=== PATIENT | female | born 1930 | race Caucasian/White ===

== ENCOUNTER 2017-04-20 11:06 | Inpatient (IN) | payer OTHER ==
[2017-04-20] MEDS ORDERED: DUONEB 0.5 MG/3 MG NEB SCH (18:24)
[2017-04-20] MEDS ORDERED: NS 1000 ML 1,000 ML ONE (18:25)
[2017-04-20] MEDS: MUCOMYST 20% 200 MG/ML NEB SCH ×2 (19:08→20:52)
[2017-04-20 19:28] LABS: BASOPHILS % (AUTO) 0.4 % (0.2-1.0); EOSINOPHILS % (AUTO) 0.4 % (0.9-2.9); HEMATOCRIT 30.6 % (36.0-47.0); HEMOGLOBIN 10.5 g/dL (12.0-16.0); LYMPHOCYTES # (AUTO) 0.7 X10^3/uL (1.3-2.9); LYMPHOCYTES % (AUTO) 6.4 % (21.0-51.0); MEAN CORPUSCULAR HGB CONC 34.4 g/dL (33.0-35.0); MONOCYTES # (AUTO) 0.6 x10^3/uL (0.3-0.8); NEUTROPHILS # (AUTO) 9.2 x10^3/uL (2.2-4.8); NEUTROPHILS % (AUTO) 86.8 % (42.0-75.0); PLATELET COUNT 226 X10^3/uL (150.0-450.0); RED BLOOD COUNT 3.29 X10^6/uL (3.5-5.4); RED CELL DISTRIBUTION WIDTH 12.7 % (11.6-16.5); WHITE BLOOD COUNT 10.6 X10^3/uL (3.6-10.0)
[2017-04-20 19:41] LABS: ALANINE AMINOTRANSFERASE 123 Units/L (12-78); ALBUMIN 2.8 g/dL (3.4-5.0); ALKALINE PHOSPHATASE 78 Units/L (46-116); ASPARTATE AMINO TRANSFERASE 39 Units/L (15-37); BLOOD UREA NITROGEN 16 mg/dL (7-18); CALCIUM 8.7 mg/dL (8.5-10.1); CARBON DIOXIDE 27.8 mmol/L (21-32); CHLORIDE 107 mmol/L (98-107); COR CA(FOR HYPOALB) 9.7 mg/dL (8.5-10.1); CREATININE 0.85 mg/dL (0.55-1.02); GLUCOSE 107 mg/dL (65-99); SODIUM 142 mmol/L (136-145); TOTAL PROTEIN 6.2 g/dL (6.4-8.2); eGFR BLACK RACES > 60 (>60); eGFR NON BLACK RACES > 60 (>60)
[2017-04-20] MEDS: FLAGYL IV PREMIX 500 MG BAG 500 MG/100 ML BAG IV SCH (19:41)
[2017-04-20] MEDS: ZOSYN VIAL 3.375 GM 3.375 GM in NS 100 ML IV + SPIKE MINIBAG* 100 ML IV SCH (19:41)
[2017-04-20] MEDS: DUONEB 0.5 MG/3 MG NEB SCH (20:52)
--- NOTE | 2017-04-20 22:42 | RAD ---
Portable chest Indication: Dyspnea postoperatively Comparison: None available. Impression: There is a layering left pleural effusion and adjacent opacity, atelectasis versus pneumonia. The ri ght lung is clear apart from chronic interstitial change suggestive of COPD. There is mild cardiomeg michelle without edema. No pneumothorax is seen. Reported By:
[2017-04-20] MEDS ORDERED: CARDIZEM INJ 125 MG VIAL 125 MG in NS 100 ML IV 100 ML IV PRN (23:20)
[2017-04-20] MEDS ORDERED: LANOXIN INJ IVP ONE (23:21)
[2017-04-20] MEDS ORDERED: NS 100 ML IV 100 ML IV ONE (23:24)
[2017-04-20] MEDS ORDERED: CARDIZEM INJ 125 MG VIAL ONE (23:25)
[2017-04-21] MEDS: CIPRO IV 200 MG PREMIX* 200 MG/100 ML BAG IV SCH ×3 (00:11→20:21)
[2017-04-21] MEDS: ZOSYN VIAL 3.375 GM 3.375 GM in NS 100 ML IV + SPIKE MINIBAG* 100 ML IV SCH ×4 (00:31→22:05)
[2017-04-21 00:45] LABS: BILIRUBIN,URINE NEGATIVE (NEGATIVE); BLOOD/HEMOGLOBIN,URINE 3+ (NEGATIVE); GLUCOSE, URINE NEGATIVE (NEGATIVE); KETONES,URINE 4+ (NEGATIVE); LEUKOCYTE ESTERASE ,URINE 1+ (NEGATIVE); NITRITES,URINE NEGATIVE (NEGATIVE); PROTEIN,URINE 3+ (NEGATIVE); UROBILINOGEN,URINE NORMAL (NORMAL)
[2017-04-21 01:00] LABS: AMORPHOUS SEDIMENT,UR 1+ /HPF (NEGATIVE); APPEARANCE,URINE HAZY (CLEAR); BACTERIA,URINE 1+ /HPF (NEGATIVE); COLOR,URINE YELLOW (YELLOW); MUCUS,URINE FEW /HPF (NEGATIVE); SQUAMOUS EPITHELIAL CELL,UR FEW /HPF (NEGATIVE)
[2017-04-21 01:21] VITALS: BMI 22.3
[2017-04-21] MEDS: FLAGYL IV PREMIX 500 MG BAG 500 MG/100 ML BAG IV SCH ×3 (03:16→17:57)
[2017-04-21 07:08] LABS: BASOPHILS # (AUTO) 0.1 X10^3/uL (0.0-0.1); BASOPHILS % (AUTO) 0.5 % (0.2-1.0); EOSINOPHILS % (AUTO) 0.2 % (0.9-2.9); HEMATOCRIT 30.2 % (36.0-47.0); HEMOGLOBIN 10.4 g/dL (12.0-16.0); LYMPHOCYTES # (AUTO) 0.6 X10^3/uL (1.3-2.9); LYMPHOCYTES % (AUTO) 5.8 % (21.0-51.0); MEAN CORPUSCULAR HGB CONC 34.4 g/dL (33.0-35.0); MEAN CORPUSCULAR VOLUME 93.1 fL (80.0-100.0); MEAN PLATELET VOLUME 10.1 fL (7.4-11.0); MONOCYTES # (AUTO) 0.7 x10^3/uL (0.3-0.8); MONOCYTES % (AUTO) 6.6 % (0.0-13.0); NEUTROPHILS # (AUTO) 9.1 x10^3/uL (2.2-4.8); NEUTROPHILS % (AUTO) 86.9 % (42.0-75.0); PLATELET COUNT 235 X10^3/uL (150.0-450.0); RED BLOOD COUNT 3.25 X10^6/uL (3.5-5.4); RED CELL DISTRIBUTION WIDTH 12.8 % (11.6-16.5); WHITE BLOOD COUNT 10.5 X10^3/uL (3.6-10.0)
[2017-04-21 07:38] LABS: ALANINE AMINOTRANSFERASE 97 Units/L (12-78); ALBUMIN 2.5 g/dL (3.4-5.0); ALKALINE PHOSPHATASE 72 Units/L (46-116); BLOOD UREA NITROGEN 16 mg/dL (7-18); CARBON DIOXIDE 22.6 mmol/L (21-32); CHLORIDE 106 mmol/L (98-107); COR CA(FOR HYPOALB) 9.2 mg/dL (8.5-10.1); CREATININE 0.75 mg/dL (0.55-1.02); GLUCOSE 108 mg/dL (65-99); SODIUM 141 mmol/L (136-145); TOTAL PROTEIN 5.7 g/dL (6.4-8.2); eGFR BLACK RACES > 60 (>60); eGFR NON BLACK RACES > 60 (>60)
[2017-04-21 07:46] LABS: ASPARTATE AMINO TRANSFERASE 34 Units/L (15-37)
[2017-04-21] MEDS ORDERED: MIRALAX POWDER (1 DOSE 17GM) PO SCH (09:00)
--- NOTE | 2017-04-21 09:00 | PCM.PROG ---
Progress Note - Progress Note for Day of Date: 04/21/17 - Subjective Subjective: (-) N/V. Admits to fullness and dyspepsia. (+) flatus. (-) BM. ( +) OOB. Pain controlled. - Past Medical Family Social History Allergies: Allergies No Known Drug Allergies Allergy (Verified 04/20/17 18:24) - Review of Systems ROS changes noted: A.fib with RVR treated with cardizem gtt last pm. - Vital Signs and I&O's Vital Signs: Temperature 98.1 F Pulse Rate [Left Brachial] 68 Pulse Rate 144 Respiratory Rate 18 Blood Pressure [Left Arm] 132/61 O2 Sat by Pulse Oximetry 98 Intake and Output: Intake & Output 04/18/17 04/19/17 04/20/17 04/21/17 11:59 11:59 11:59 11:59 Intake Total 1215 Output Total 300 Balance 915 - Physical Exam Oriented: Time, Person Respiratory: Diminished ((L) base) Cardiovascular: Normal Auscultation: Bowel Sounds: Decreased Palpation: Other (Diffuse distention. ) Tenderness: Other (Approp. TTP. Incision C/D/I.) Skin: Bruising (UE R>L) Affect: Normal Speech Pattern: Clear, Appropriate - Laboratory and Diagnostics Result Diagrams: 04/21/17 04:10 04/21/17 04:10 Labs: Laboratory WBC 10.5 X10^3/uL (3.6-10.0) H 04/21/17 04:10 RBC 3.25 X10^6/uL (3.5-5.4) L 04/21/17 04:10 Hgb 10.4 g/dL (12.0-16.0) L 04/21/17 04:10 Hct 30.2 % (36.0-47.0) L 04/21/17 04:10 MCV 93.1 fL (80.0-100.0) 04/21/17 04:10 MCH 32.0 pg (27.0-34.0) 04/21/17 04:10 MCHC 34.4 g/dL (33.0-35.0) 04/21/17 04:10 RDW 12.8 % (11.6-16.5) 04/21/17 04:10 Plt Count 235 X10^3/uL (150.0-450.0) 04/21/17 04:10 MPV 10.1 fL (7.4-11.0) 04/21/17 04:10 Neut % 86.9 % (42.0-75.0) H 04/21/17 04:10 Lymph % 5.8 % (21.0-51.0) L 04/21/17 04:10 [place] % 6.6 % (0.0-13.0) 04/21/17 04:10 Eos % 0.2 % (0.9-2.9) L 04/21/17 04:10 Baso % 0.5 % (0.2-1.0) 04/21/17 04:10 Neut # 9.1 x10^3/uL (2.2-4.8) H 04/21/17 04:10 Lymph # 0.6 X10^3/uL (1.3-2.9) L 04/21/17 04:10 [place] # 0.7 x10^3/uL (0.3-0.8) 04/21/17 04:10 Eos # 0.0 x10^3/uL (0.0-0.2) 04/21/17 04:10 Baso # 0.1 X10^3/uL (0.0-0.1) 04/21/17 04:10 Absolute Nucleated RBC 0.0 /100WBC 04/21/17 04:10 Sodium 141 mmol/L (136-145) 04/21/17 04:10 Corrected Sodium TNP 04/21/17 04:10 Potassium 3.4 mmol/L (3.5-5.1) L 04/21/17 04:10 Chloride 106 mmol/L (98-107) 04/21/17 04:10 Carbon Dioxide 22.6 mmol/L (21-32) 04/21/17 04:10 BUN 16 mg/dL (7-18) 04/21/17 04:10 Creatinine 0.75 mg/dL (0.55-1.02) 04/21/17 04:10 Est GFR (MDRD) Af Amer > 60 (>60) 04/21/17 04:10 Est GFR (MDRD) Non-Af > 60 (>60) 04/21/17 04:10 Glucose 108 mg/dL (65-99) H 04/21/17 04:10 Calcium 8.0 mg/dL (8.5-10.1) L 04/21/17 04:10 Corrected Calcium 9.2 mg/dL (8.5-10.1) 04/21/17 04:10 Total Bilirubin 0.70 mg/dL (0.2-1.0) 04/21/17 04:10 AST 34 Units/L (15-37) 04/21/17 04:10 ALT 97 Units/L (12-78) H 04/21/17 04:10 Alkaline Phosphatase 72 Units/L (46-116) 04/21/17 04:10 Total Protein 5.7 g/dL (6.4-8.2) L 04/21/17 04:10 Albumin 2.5 g/dL (3.4-5.0) L 04/21/17 04:10 Globulin 3.2 g/dL (2.5-4.5) 04/21/17 04:10 Albumin/Globulin Ratio 0.8 Ratio (1.1-2.1) L 04/21/17 04:10 Specimen Type Catherized urine 04/21/17 00:20 Urine Color Yellow (YELLOW) 04/21/17 00:20 Urine Appearance Hazy (CLEAR) 04/21/17 00:20 Urine pH 5.0 (5.0 - 8.0) 04/21/17 00:20 Ur Specific [place] 1.025 (1.000-1.030) 04/21/17 00:20 Urine Protein 3+ (NEGATIVE) 04/21/17 00:20 Urine Glucose (UA) Negative (NEGATIVE) 04/21/17 00:20 Urine Ketones 4+ (NEGATIVE) 04/21/17 00:20 Urine Occult Blood 3+ (NEGATIVE) 04/21/17 00:20 Urine Nitrite Negative (NEGATIVE) 04/21/17 00:20 Urine Bilirubin Negative (NEGATIVE) 04/21/17 00:20 Urine Urobilinogen Normal (NORMAL) 04/21/17 00:20 Ur Leukocyte Esterase 1+ (NEGATIVE) 04/21/17 00:20 Urine RBC 2-6 /HPF (NEGATIVE) 04/21/17 00:20 Urine WBC 5-10 /HPF (NEGATIVE) 04/21/17 00:20 Ur Squamous Epith Cells Few /HPF (NEGATIVE) 04/21/17 00:20 Amorphous Sediment 1+ /HPF (NEGATIVE) 04/21/17 00:20 Urine Bacteria 1+ /HPF (NEGATIVE) 04/21/17 00:20 Urine Mucus Few /HPF (NEGATIVE) 04/21/17 00:20 Ur Culture Indicated? Yes/culture set up 04/21/17 00:20 - Plan (1) Ileus following gastrointestinal surgery Status: Acute Narrative Support Text: 86 yo F POD#3 ex-lap / sigmoidectomy for redundant sigmoid and rectal prolapse. (+) flatus. (-) BM. (+) dyspepsia and abdominal distention. Decreased BS on exam. Plan: Await bowel function. Limit diet to sips CL. Do NOT advance. Concern for N/V and possible aspiration. If does not improve, may require NGT for decompression. UNABLE TO USE SUPPOSITORIES DUE TO LOW STAPLE LINE. Mobilize. Treat UTI. Follow electrolytes.
[2017-04-21] MEDS: NS 1000 ML 1,000 ML IV SCH ×3 (09:32→20:30)
[2017-04-21] MEDS: DUONEB 0.5 MG/3 MG NEB SCH ×4 (09:40→21:21)
[2017-04-21] MEDS: MUCOMYST 20% 200 MG/ML NEB SCH ×4 (09:42→21:21)
[2017-04-21] MEDS: LEVAQUIN PREMIX IV 750 MG 750 MG/150 ML BAG IV SCH (11:00)
[2017-04-21] MEDS ORDERED: XOPENEX 1.25 MG/3 ML NEBULE NEB PRN (13:06)
[2017-04-21] MEDS: CARDIZEM SR 60 MG PO SCH ×3 (15:49→22:04)
[2017-04-21] MEDS ORDERED: ZOFRAN INJ 4 MG VIAL IVP PRN (16:32)
[2017-04-21] MEDS ORDERED: ZOFRAN INJ 4 MG VIAL ONE (16:34)
--- NOTE | 2017-04-21 16:36 | DR.H&P ---
H&P - History & Physical for Day of: H&P Date: 04/20/17 - Chief Complaint Chief Complaint: S/P RECTAL PROLAPSE, LLL ATELECTASIS - Allergies Allergies/Adverse Reactions: Allergies Allergy/AdvReac Type Severity Reaction Status Date / Time No Known Drug Allergies Allergy Verified 04/20/17 18:24 - History of Present Illness History of Present Illness: IS A 86 YEAR OLD PATIENT OF OURS WHO WAS A TRANSFER PER PATIENT AND FAMILY REQUEST FROM [facility]. PATIENT IS STATUS POST SIGMOIDECTOMY DUE TO RECTAL PROLAPSE. SURGERY WAS PERFORMED BY . HE WILL CONTINUE TO FOLLOW PATIENT'S CARE AT THIS FACILITY. A CHEST XRAY ALSO REPORTED LEFT LOWER LOBE ATELECTASIS. SHE WAS NOTED WITH NON PRODUCTIVE COUGH, SHORTNESS OF BREATH, AND WHEEZING ON AUSCULTATION. ON ARRIVAL TO OUR FACILITY, SHE IS NOTED WITH A MIDLINE ABDOMINAL INCISION WITH 12 FARHAT NOTED TO BE INTACT. WOUND IS OPEN TO AIR WITH NO S/SX INFECTION NOTED. PATIENT WAS RECEIVING CIPRO 400MG IV Q12H, ZOSYN 3.375 GM IV Q8H, FLAGYL 500MG IV Q8H, AND LEVAQUIN 750MG IV DAILY AT [facility]. WE WILL CONTINUE THIS TREATMENT. WE WILL ALSO START DUONEB, XOPENEX, AND MUCOMYST NEB TREATMENTS. WE PLAN TO RECHECK LABS IN AM AND CONTINUE TO FOLLOW UP WITH PATIENT. 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 Surgery, Hysterectomy, Ortho Surgery, Tonsillectomy - Family History Family Medical History: Diabetes Mellitus, Cancer, [place] - Social History Does patient currently use any type of tobacco product: No Have you used tobacco products in the last 12 months: No Type of Tobacco Use: Cigarettes Alcohol Use: None Drug Use: None - Medications Home Medications: Albuterol Sulfate [Proair Hfa] 1 puff IH Q6H PRN 04/20/17 [History Confirmed ] Alprazolam [XANAX 0.25 MG *] 0.25 mg PO Q6H PRN 04/20/17 [History Confirmed ] Benzonatate [TESSALON PERLES *] 1 cap PO Q8H PRN 04/20/17 [History Confirmed ] Hydrocodone/Acetaminophen [Hydrocodon-Acetaminophen 5-325] 1 tab PO Q6H PRN [History Confirmed 04/20/17] Losartan/Hydrochlorothiazide [Losartan-Hctz 100-12.5 mg Tab] 1 tab PO DAILY [History Confirmed 04/20/17] Omeprazole 40 mg PO DAILY 04/20/17 [History Confirmed 04/20/17] Prednisone [PREDNISONE TAB 10 MG *] 10 mg PO NEEDED 04/20/17 [History Confirmed 04/20/17] Simvastatin [ZOCOR 20 MG *] 20 mg PO HS 04/20/17 [History Confirmed 04/20/17] Trazodone HCl [TRAZODONE 50 MG (DESYREL) *] 100 mg PO HS 04/20/17 [History Confirmed 04/20/17] - Review of Systems Constitutional: No Symptoms Reported. denies: See HPI, Fever, Chills, Sweats, Weakness, Malaise, Other Eyes: No Symptoms Reported. denies: See HPI, Pain, Vision Change, Conjunctivae Inflammation, Eyelid Inflammation, Redness, Other ENT: No Symptoms Reported. denies: See HPI, Ear Pain, Ear Discharge, Nose Pain , Nose Discharge, Nose Congestion, Mouth Pain, Mouth Swelling, Throat Pain, Throat Swelling, Other Respiratory: Cough, Shortness of Breath, Wheezing Cardiovascular: No Symptoms Reported. denies: Chest Pain, See HPI, Palpitations , Orthopnea, Paroxysmal Noc. Dyspnea, Edema, Light Headedness, Other Gastrointestinal: See HPI, Abdominal Pain. denies: No Symptoms Reported, Nausea , Vomiting, Diarrhea, Constipation, Melena, Hematochezia, Other Musculoskeletal: No Symptoms Reported. denies: See HPI, Shoulder Pain, Arm Pain , Back Pain, Hand Pain, Leg Pain, Foot Pain, Neck Pain, Other Skin: See HPI, Wound. denies: No Symptoms Reported, Rash, Lesions, Jaundice, Bruising, Ecchymosis, Other Neurological: No Symptoms Reported. denies: See HPI, Weakness, Numbness, Incoordination, Change in Speech, Confusion, Seizures, Other - Physical Exam Vital Signs: Temperature 97.8 F Pulse Rate [Left Brachial] 85 Pulse Rate 144 Respiratory Rate 21 Blood Pressure [Left Arm] 156/83 O2 Sat by Pulse Oximetry 97 Oriented: Normal, Time, Person Eyes: Normal Ear: Normal Nose: Normal Throat: Normal Respiratory: Wheezes Throughout. negative: Clear Throughout, Diminished Throughout, Rhonchi Throughout, Rales Throughout, RUL Clear, RML Clear, RLL Clear, MIR Clear, LML Clear, LLL Clear, RUL Diminished, RML Diminished, RLL Diminished, MIR Diminished, LML Diminished, LLL Diminished, RUL Absent, RML Absent, RLL Absent, MIR Absent, LML Absent, LLL Absent, RUL Rhonchi, RML Rhonchi , RLL Rhonchi, MIR Rhonchi, LML Rhonchi, LLL Rhonchi, RUL Insp. Wheeze, RML Insp. Wheeze, RLL Insp. Wheeze, MIR Insp.Wheeze, LML Insp.Wheeze, LLL Insp.Wheeze, RUL Exp. Wheeze, RML Exp. Wheeze, RLL Exp. Wheeze, MIR Exp. Wheeze , LML Exp. Wheeze, LLL Exp. Wheeze, RUL Rales, RML Rales, RLL Rales, MIR Rales, LML Rales, LLL Rales, RUL Rub, RML Rub, RLL Rub, MIR Rub, LML Rub, LLL Rub, RUL Squeak, RML Squeak, RLL Squeak, MIR Squeak, LML Squeak, LLL Squeak Cardiovascular: Normal : Normal Auscultation: Bowel Sounds: Decreased. negative: Normal, Bruit, Absent, Increased, High Pitched, Other Palpation: Normal Tenderness: Diffuse, Moderate, Guarding Skin: Wound (MIDLINE ABDOMINAL SURGICAL WOUND ) Musculoskeletal: Normal. negative: Right, Left, Shoulder, Clavicle, Arm, Elbow , Forearm, Wrist, Hand, Hip, Thigh, Knee, Leg, Ankle, Foot, Back:Thoracic, Back: Lumbar, Back:Midline, Back:Paraspinous, Pelvis, Swelling, Tender, Deformity, Pulse Deficit, Motor Deficit, Sensory Deficit, Instability, Crepitance Psychiatric: Normal. negative: Anxiety, Depression, Agitation, Other Mood Description: Calm. negative: Angry, Apathetic, Depressed, Fearful, Flat, Happy, Hostile, Sad, Suspicious, Withdrawn, Anxious, Appropriate, Labile Affect: Normal Speech Pattern: Clear. negative: Appropriate, Unclear, Inappropriate, Delayed, Slurred, Excessive, Aphasic, Artificially Ventilated - Assessment/Plan (1) History of open sigmoidectomy Status: Acute Plan: CIPRO IV, FLAGYL IV, WOUND CARE, CONTINUE TO MONITOR (2) Rectal prolapse Status: Acute Plan: S/P SIGMOIDECTOMY, CIPRO IV, FLAGYL IV, CONTINUE TO MONITOR (3) Atelectasis of left lung Status: Acute Plan: LEVAQUIN IV, ZOSYN IV, CONTINUE TO MONITOR
[2017-04-21] MEDS: MIRALAX POWDER (1 DOSE 17GM) PO SCH (20:21)
--- NOTE | 2017-04-21 20:36 | RAD ---
EXAM: Abdomen x-ray INDICATION: Tube placement COMPARISION: No priors TECHNIQUE: AP view, single view FINDINGS: Chest x-ray was also included in the exam. Nasogastric tube is coiled in the esophagus. The tip of t he tube is at the thoracic inlet. There is a left pleural effusion volume loss in the left lower lob e. Dilated air-filled loops of small bowel are seen throughout the abdomen. A large amount of stool is seen in the colon on the right. IMPRESSION: Nasogastric tube tip is at the thoracic inlet. The NG tube is coiled in the esophagus. The appearanc e of the small bowel is consistent with a small bowel obstruction or ileus. Reported By:
--- NOTE | 2017-04-21 21:26 | RAD ---
Abdominal KUB Indication: NG Tube placement Comparison: Radiograph of the same day Impression: The esophagogastric tube has been repositioned and advanced in the interval with its tip radiolucent side hole projecting over the proximal stomach. Gaseous distention of the visualized small and larg e bowel appears similar. There is stable small left pleural effusion. No new abnormality. Reported By:
--- NOTE | 2017-04-21 21:59 | RAD ---
Portable chest Indication: Dyspnea Comparison: April 20, 2017 Impression: There is stable cardiomegaly and small left pleural effusion. Adjacent opacity appears similar as we ll. The right lung remains grossly clear apart from chronic interstitial change. No new abnormality. Reported By:
[2017-04-22] MEDS: FLAGYL IV PREMIX 500 MG BAG 500 MG/100 ML BAG IV SCH ×3 (01:41→17:29)
[2017-04-22] MEDS: CARDIZEM SR 60 MG PO SCH ×3 (05:14→20:59)
[2017-04-22] MEDS: ZOSYN VIAL 3.375 GM 3.375 GM in NS 100 ML IV + SPIKE MINIBAG* 100 ML IV SCH ×3 (05:14→20:59)
[2017-04-22 05:33] LABS: BASOPHILS % (AUTO) 0.4 % (0.2-1.0); EOSINOPHILS % (AUTO) 0.4 % (0.9-2.9); HEMATOCRIT 31.1 % (36.0-47.0); HEMOGLOBIN 11.1 g/dL (12.0-16.0); LYMPHOCYTES # (AUTO) 0.7 X10^3/uL (1.3-2.9); LYMPHOCYTES % (AUTO) 5.6 % (21.0-51.0); MEAN CORPUSCULAR HEMOGLOBIN 32.5 pg (27.0-34.0); MEAN CORPUSCULAR HGB CONC 35.6 g/dL (33.0-35.0); MEAN CORPUSCULAR VOLUME 91.3 fL (80.0-100.0); MEAN PLATELET VOLUME 9.1 fL (7.4-11.0); MONOCYTES % (AUTO) 8.7 % (0.0-13.0); NEUTROPHILS % (AUTO) 84.9 % (42.0-75.0); PLATELET COUNT 218 X10^3/uL (150.0-450.0); RED CELL DISTRIBUTION WIDTH 12.7 % (11.6-16.5); WHITE BLOOD COUNT 11.8 X10^3/uL (3.6-10.0)
[2017-04-22 05:40] LABS: ALANINE AMINOTRANSFERASE 72 Units/L (12-78); ALBUMIN 2.5 g/dL (3.4-5.0); ALKALINE PHOSPHATASE 58 Units/L (46-116); ASPARTATE AMINO TRANSFERASE 18 Units/L (15-37); BLOOD UREA NITROGEN 16 mg/dL (7-18); CALCIUM 8.3 mg/dL (8.5-10.1); CARBON DIOXIDE 27.5 mmol/L (21-32); CHLORIDE 107 mmol/L (98-107); COR CA(FOR HYPOALB) 9.5 mg/dL (8.5-10.1); COR NA(FOR HYPERGLY) 144 mmol/L (136-145); CREATININE 0.67 mg/dL (0.55-1.02); GLUCOSE 142 mg/dL (65-99); SODIUM 143 mmol/L (136-145); TOTAL PROTEIN 5.7 g/dL (6.4-8.2); eGFR BLACK RACES > 60 (>60); eGFR NON BLACK RACES > 60 (>60)
[2017-04-22] MEDS ORDERED: K-DUR TAB 20 MEQ PO PRN (05:55)
[2017-04-22] MEDS ORDERED: K-LYTE EFFERVESCENT PO PRN (05:55)
[2017-04-22] MEDS ORDERED: K-RIDER 10 MEQ/NS 100 ML 10 MEQ/100 ML BAG IV PRN (05:55)
[2017-04-22] MEDS: POTASSIUM CHLORIDE LIQ 20 MEQ UDC PO PRN ×2 (06:22→14:48)
[2017-04-22] MEDS: CIPRO IV 200 MG PREMIX* 200 MG/100 ML BAG IV SCH ×2 (08:31→20:32)
[2017-04-22] MEDS: NS 1000 ML 1,000 ML IV SCH ×3 (08:31→21:50)
--- NOTE | 2017-04-22 09:20 | PCM.PROG ---
Progress Note - Progress Note for Day of Date: 04/22/17 - Subjective Subjective: (+) N/V last pm. NGT placed with improvement sx's. (-) flatus / BM. (+) OOB. Pain controlled. - Past Medical Family Social History Allergies: Allergies No Known Drug Allergies Allergy (Verified 04/20/17 18:24) - Vital Signs and I&O's Vital Signs: Temperature 97.7 F Pulse Rate [Left Brachial] 80 Pulse Rate 85 Respiratory Rate 18 Blood Pressure [Left Arm] 168/79 O2 Sat by Pulse Oximetry 96 Intake and Output: Intake & Output 04/19/17 04/20/17 04/21/17 04/22/17 11:59 11:59 11:59 11:59 Intake Total 1215 1308 Output Total 300 2325 Balance 915 -1017 - Physical Exam Oriented: Normal, Time, Person, Place Eyes: Normal Ear: Normal Nose: Normal Throat: Normal Respiratory: Diminished ((L) base - improved ), OTHER Cardiovascular: Normal : Normal Auscultation: Bowel Sounds: Decreased (Imroved). negative: Normal, Bruit, Absent, Increased, High Pitched, Other Palpation: Other (Moderate abd. distention) Tenderness: Diffuse, Moderate Skin: Bruising (UE R>L), Other (Incision C/D/I) Psychiatric: Normal Mood Description: Calm Affect: Normal Speech Pattern: Clear, Appropriate - Laboratory and Diagnostics Result Diagrams: 04/22/17 05:00 04/22/17 05:00 Labs: Laboratory WBC 11.8 X10^3/uL (3.6-10.0) H 04/22/17 05:00 RBC 3.40 X10^6/uL (3.5-5.4) L 04/22/17 05:00 Hgb 11.1 g/dL (12.0-16.0) L 04/22/17 05:00 Hct 31.1 % (36.0-47.0) L 04/22/17 05:00 MCV 91.3 fL (80.0-100.0) 04/22/17 05:00 MCH 32.5 pg (27.0-34.0) 04/22/17 05:00 MCHC 35.6 g/dL (33.0-35.0) H 04/22/17 05:00 RDW 12.7 % (11.6-16.5) 04/22/17 05:00 Plt Count 218 X10^3/uL (150.0-450.0) 04/22/17 05:00 MPV 9.1 fL (7.4-11.0) 04/22/17 05:00 Neut % 84.9 % (42.0-75.0) H 04/22/17 05:00 Lymph % 5.6 % (21.0-51.0) L 04/22/17 05:00 [place] % 8.7 % (0.0-13.0) 04/22/17 05:00 Eos % 0.4 % (0.9-2.9) L 04/22/17 05:00 Baso % 0.4 % (0.2-1.0) 04/22/17 05:00 Neut # 10.0 x10^3/uL (2.2-4.8) H 04/22/17 05:00 Lymph # 0.7 X10^3/uL (1.3-2.9) L 04/22/17 05:00 [place] # 1.0 x10^3/uL (0.3-0.8) H 04/22/17 05:00 Eos # 0.0 x10^3/uL (0.0-0.2) 04/22/17 05:00 Baso # 0.0 X10^3/uL (0.0-0.1) 04/22/17 05:00 Absolute Nucleated RBC 0.0 /100WBC 04/22/17 05:00 Sodium 143 mmol/L (136-145) 04/22/17 05:00 Corrected Sodium 144 mmol/L (136-145) 04/22/17 05:00 Potassium 2.8 mmol/L (3.5-5.1) L* 04/22/17 05:00 Chloride 107 mmol/L (98-107) 04/22/17 05:00 Carbon Dioxide 27.5 mmol/L (21-32) 04/22/17 05:00 BUN 16 mg/dL (7-18) 04/22/17 05:00 Creatinine 0.67 mg/dL (0.55-1.02) 04/22/17 05:00 Est GFR (MDRD) Af Amer > 60 (>60) 04/22/17 05:00 Est GFR (MDRD) Non-Af > 60 (>60) 04/22/17 05:00 Glucose 142 mg/dL (65-99) H 04/22/17 05:00 Calcium 8.3 mg/dL (8.5-10.1) L 04/22/17 05:00 Corrected Calcium 9.5 mg/dL (8.5-10.1) 04/22/17 05:00 Magnesium 1.8 mg/dL (1.7-2.9) 04/22/17 05:00 Total Bilirubin 0.60 mg/dL (0.2-1.0) 04/22/17 05:00 AST 18 Units/L (15-37) 04/22/17 05:00 ALT 72 Units/L (12-78) 04/22/17 05:00 Alkaline Phosphatase 58 Units/L (46-116) 04/22/17 05:00 Total Protein 5.7 g/dL (6.4-8.2) L 04/22/17 05:00 Albumin 2.5 g/dL (3.4-5.0) L 04/22/17 05:00 Globulin 3.2 g/dL (2.5-4.5) 04/22/17 05:00 Albumin/Globulin Ratio 0.8 Ratio (1.1-2.1) L 04/22/17 05:00 Specimen Type Catherized urine 04/21/17 00:20 Urine Color Yellow (YELLOW) 04/21/17 00:20 Urine Appearance Hazy (CLEAR) 04/21/17 00:20 Urine pH 5.0 (5.0 - 8.0) 04/21/17 00:20 Ur Specific [place] 1.025 (1.000-1.030) 04/21/17 00:20 Urine Protein 3+ (NEGATIVE) 04/21/17 00:20 Urine Glucose (UA) Negative (NEGATIVE) 04/21/17 00:20 Urine Ketones 4+ (NEGATIVE) 04/21/17 00:20 Urine Occult Blood 3+ (NEGATIVE) 04/21/17 00:20 Urine Nitrite Negative (NEGATIVE) 04/21/17 00:20 Urine Bilirubin Negative (NEGATIVE) 04/21/17 00:20 Urine Urobilinogen Normal (NORMAL) 04/21/17 00:20 Ur Leukocyte Esterase 1+ (NEGATIVE) 04/21/17 00:20 Urine RBC 2-6 /HPF (NEGATIVE) 04/21/17 00:20 Urine WBC 5-10 /HPF (NEGATIVE) 04/21/17 00:20 Ur Squamous Epith Cells Few /HPF (NEGATIVE) 04/21/17 00:20 Amorphous Sediment 1+ /HPF (NEGATIVE) 04/21/17 00:20 Urine Bacteria 1+ /HPF (NEGATIVE) 04/21/17 00:20 Urine Mucus Few /HPF (NEGATIVE) 04/21/17 00:20 Ur Culture Indicated? Yes/culture set up 04/21/17 00:20 - Plan (1) Ileus following gastrointestinal surgery Status: Acute Plan: Await bowel function. Decreased nausea / dyspepsia with NGT. Improved bowel sounds. UNABLE TO USE SUPPOSITORIES DUE TO LOW STAPLE LINE. Mobilize. Treat UTI. Follow electrolytes. (2) Hypokalemia Status: Acute Plan: Replace. Monitor.
[2017-04-22] MEDS: LEVAQUIN PREMIX IV 750 MG 750 MG/150 ML BAG IV SCH (09:40)
[2017-04-22] MEDS: DUONEB 0.5 MG/3 MG NEB SCH ×4 (10:01→21:03)
[2017-04-22] MEDS: MUCOMYST 20% 200 MG/ML NEB SCH ×4 (10:01→21:04)
--- NOTE | 2017-04-22 10:23 | RAD ---
HISTORY: Shortness of breath Study: Single AP film of the chest obtained 5:08 a.m. Portable Comparison: April 21, 2017 Findings: The trachea is midline . There is no widening or shift of mediastinum. The heart is top normal size. Calcification of the aortic arch is present. blunting of the left costophrenic angle consistent wit h small left pleural effusion which is unchanged since the previous study. Flattening of the right d iaphragm consistent with air trapping.. The lungs are adequately aerated. Osseous structures are wit hin normal limits for the patient's age patchy infiltrate in the left posterior basal segment . IMPRESSION: 1. Heart top normal size. Small left pleural effusion and left posterior basal segment infiltrate un changed since the previous study. Air trapping consistent with COPD. Reported By:
[2017-04-22] MEDS: MIRALAX POWDER (1 DOSE 17GM) PO SCH (20:32)
[2017-04-22] MEDS: RESTORIL CAP 15 MG PO PRN (20:57)
[2017-04-23] MEDS: FLAGYL IV PREMIX 500 MG BAG 500 MG/100 ML BAG IV SCH ×2 (01:46→09:24)
[2017-04-23 05:28] LABS: ALANINE AMINOTRANSFERASE 57 Units/L (12-78); ALBUMIN 2.5 g/dL (3.4-5.0); ALKALINE PHOSPHATASE 56 Units/L (46-116); ASPARTATE AMINO TRANSFERASE 15 Units/L (15-37); BLOOD UREA NITROGEN 18 mg/dL (7-18); CALCIUM 8.3 mg/dL (8.5-10.1); CARBON DIOXIDE 31.5 mmol/L (21-32); CHLORIDE 108 mmol/L (98-107); COR CA(FOR HYPOALB) 9.5 mg/dL (8.5-10.1); COR NA(FOR HYPERGLY) 147 mmol/L (136-145); CREATININE 0.77 mg/dL (0.55-1.02); GLUCOSE 124 mg/dL (65-99); SODIUM 146 mmol/L (136-145); TOTAL PROTEIN 5.6 g/dL (6.4-8.2); eGFR BLACK RACES > 60 (>60); eGFR NON BLACK RACES > 60 (>60)
[2017-04-23 05:46] LABS: BASOPHILS % (AUTO) 0.1 % (0.2-1.0); EOSINOPHILS # (AUTO) 0.1 x10^3/uL (0.0-0.2); EOSINOPHILS % (AUTO) 0.5 % (0.9-2.9); HEMATOCRIT 31.5 % (36.0-47.0); LYMPHOCYTES # (AUTO) 0.8 X10^3/uL (1.3-2.9); LYMPHOCYTES % (AUTO) 6.4 % (21.0-51.0); MEAN CORPUSCULAR HEMOGLOBIN 31.7 pg (27.0-34.0); MEAN CORPUSCULAR HGB CONC 34.8 g/dL (33.0-35.0); MEAN CORPUSCULAR VOLUME 91.1 fL (80.0-100.0); MEAN PLATELET VOLUME 9.1 fL (7.4-11.0); MONOCYTES # (AUTO) 1.1 x10^3/uL (0.3-0.8); MONOCYTES % (AUTO) 8.2 % (0.0-13.0); NEUTROPHILS # (AUTO) 10.8 x10^3/uL (2.2-4.8); NEUTROPHILS % (AUTO) 84.8 % (42.0-75.0); PLATELET COUNT 215 X10^3/uL (150.0-450.0); RED BLOOD COUNT 3.46 X10^6/uL (3.5-5.4); RED CELL DISTRIBUTION WIDTH 12.9 % (11.6-16.5); WHITE BLOOD COUNT 12.8 X10^3/uL (3.6-10.0)
[2017-04-23] MEDS: CARDIZEM SR 60 MG PO SCH ×3 (05:51→21:17)
[2017-04-23] MEDS: ZOSYN VIAL 3.375 GM 3.375 GM in NS 100 ML IV + SPIKE MINIBAG* 100 ML IV SCH (05:51)
[2017-04-23] MEDS: POTASSIUM CHLORIDE LIQ 20 MEQ UDC PO PRN (05:52)
--- NOTE | 2017-04-23 07:02 | RAD ---
HISTORY: Abdominal distension Study: KUB Comparison: April 21, 2017 Findings: There is nasogastric tube present. Its tip is likely within the stomach, however, the side hole is l ikely in the distal esophagus. Advancement should be considered. The abdominal gas pattern is nonspe cific. There is some distended small bowel in the right lower quadrant, however, gas is present dist ally within the colon. This may be due to a postoperative ileus although developing small bowel obst ruction could not be excluded and continued follow up is recommended. No abnormal masses or abnormal calcifications are identified. A left pleural effusion is incidentally noted. IMPRESSION: Dilated small bowel loop in the right abdomen which could be related to postoperative ileus or devel oping small bowel obstruction. Clinical correlation and follow up is recommended Nasogastric tube tip within the stomach however the side hole is likely within the distal esophagus. Advancement should be considered Left pleural effusion Reported By:
--- NOTE | 2017-04-23 07:08 | RAD ---
HISTORY: Shortness of breath Study: Chest AP portable Comparison: April 22, 2017, April 21, 2017 Findings: The heart remains enlarged. No congestive heart failure is noted. The aorta is mildly ectatic. The r ight lung is hyperinflated but clear. The left upper lung field is clear. There is elevation of the left hemidiaphragm with increased density in the retrocardiac area left lower lobe silhouetting out the medial hemidiaphragm. This likely due to volume loss although associated infiltrate and pleural effusion could not be excluded. There is some subsegmental atelectasis in the left costophrenic angl e. The bony thorax is unremarkable. IMPRESSION: No significant change from the prior examination Reported By:
[2017-04-23] MEDS: DUONEB 0.5 MG/3 MG NEB SCH ×4 (09:07→20:46)
[2017-04-23] MEDS: MUCOMYST 20% 200 MG/ML NEB SCH ×2 (09:07→13:49)
--- NOTE | 2017-04-23 10:55 | PCM.PROG ---
Progress Note - Progress Note for Day of Date: 04/23/17 - Subjective Subjective: IS ALERT AND ORIENTED, LYING IN BED ON MORNING ROUNDS. SHE REPORTS FEELING MUCH BETTER COMPARED TO PREVIOUS DAYS. SHE IS NOTED WITH NG TUBE TO LOW INTERMITTENT SUCTION. MODERATE AMOUT OF BILE NOTED IN CANISTER. DIMINISHED LUNG SOUNDS NOTED TO LEFT LUNG ON AUSCULTATION. BOWEL SOUNDS HYPOACTIVE. MIDLINE ABDOMINAL INCISION OPEN TO AIR WITH NO S/SX INFECTION NOTED. FARHAT INTACT. VITALS THIS AM ARE 97.9-86-19-99%-149/82. CBC WNL EXCEPT WBC 12.8, RBC 3.46, HGB 11.0, HCT 31.5. CMP WNL EXCEPT SODIUM 146, POTASSIUM 3.1 , CHLORIDE 108, GLUCOSE 124, CALCIUM 8.3, TOTAL PROTEIN 5.6, ALBUMIN 2.5. KUB REPORTED DILATED SMALL BOWEL LOOP IN THE RIGHT ABDOMEN WHICH COULD BE RELATED TO POSTOPERATIVE ILEUS OR DEVELOPING SMALL BOWEL OBSTRUCTION, NASOGASTRIC TUBE IN STOMACH, HOWEVER, SIDE HOLE LIKELY WITHIN THE DISTAL ESOPHAGUS, AND LEFT PLEURAL EFFUSION. STAFF NOTIFIED TO TO ADVANCE NG TUBE. PATIENT REFUSED ADVANCEMENT OF TUBE. WE WILL CONTINUE WITH CURRENT PLAN OF CARE AND CONSULT WITH REGARDING PATIENT'S STATUS. WE WILL RECHECK LABS AND FOLLOW UP WITH PATIENT IN AM. - Past Medical Family Social History Past Med/Fam/Surg Hx: No changes since H&P Allergies: Allergies No Known Drug Allergies Allergy (Verified 04/20/17 18:24) - Review of Systems ROS: No change since H&P - Vital Signs and I&O's Vital Signs: Temperature 97.9 F Pulse Rate [Left Brachial] 70 Pulse Rate 88 Respiratory Rate 16 Blood Pressure [Left Arm] 159/65 O2 Sat by Pulse Oximetry 100 Intake and Output: Intake & Output 04/20/17 04/21/17 04/22/17 04/23/17 11:59 11:59 11:59 11:59 Intake Total 1215 1308 2182 Output Total 300 2325 3200 Balance 915 [id number] - Physical Exam Oriented: Normal, Time, Person Eyes: Normal Ear: Normal Nose: Normal Throat: Normal Respiratory: Diminished (LEFT LUNG), OTHER Cardiovascular: Normal : Normal Auscultation: Bowel Sounds: Decreased. negative: Normal, Bruit, Absent, Increased, High Pitched, Other Palpation: Normal Tenderness: Diffuse, Moderate, Guarding Skin: Wound (MIDLINE ABDOMINAL SURGICAL WOUND ) Musculoskeletal: Normal. negative: Right, Left, Shoulder, Clavicle, Arm, Elbow , Forearm, Wrist, Hand, Hip, Thigh, Knee, Leg, Ankle, Foot, Back:Thoracic, Back: Lumbar, Back:Midline, Back:Paraspinous, Pelvis, Swelling, Tender, Deformity, Pulse Deficit, Motor Deficit, Sensory Deficit, Instability, Crepitance Psychiatric: Normal. negative: Anxiety, Depression, Agitation, Other Mood Description: Calm. negative: Angry, Apathetic, Depressed, Fearful, Flat, Happy, Hostile, Sad, Suspicious, Withdrawn, Anxious, Appropriate, Labile Affect: Normal Speech Pattern: Clear. negative: Appropriate, Unclear, Inappropriate, Delayed, Slurred, Excessive, Aphasic, Artificially Ventilated - Laboratory and Diagnostics Result Diagrams: 04/23/17 04:20 04/23/17 08:18 Labs: 04/21/17 00:20 Urine,Catheterized Urine Culture - Final Laboratory WBC 12.8 X10^3/uL (3.6-10.0) H 04/23/17 04:20 RBC 3.46 X10^6/uL (3.5-5.4) L 04/23/17 04:20 Hgb 11.0 g/dL (12.0-16.0) L 04/23/17 04:20 Hct 31.5 % (36.0-47.0) L 04/23/17 04:20 MCV 91.1 fL (80.0-100.0) 04/23/17 04:20 MCH 31.7 pg (27.0-34.0) 04/23/17 04:20 MCHC 34.8 g/dL (33.0-35.0) 04/23/17 04:20 RDW 12.9 % (11.6-16.5) 04/23/17 04:20 Plt Count 215 X10^3/uL (150.0-450.0) 04/23/17 04:20 MPV 9.1 fL (7.4-11.0) 04/23/17 04:20 Neut % 84.8 % (42.0-75.0) H 04/23/17 04:20 Lymph % 6.4 % (21.0-51.0) L 04/23/17 04:20 [place] % 8.2 % (0.0-13.0) 04/23/17 04:20 Eos % 0.5 % (0.9-2.9) L 04/23/17 04:20 Baso % 0.1 % (0.2-1.0) L 04/23/17 04:20 Neut # 10.8 x10^3/uL (2.2-4.8) H 04/23/17 04:20 Lymph # 0.8 X10^3/uL (1.3-2.9) L 04/23/17 04:20 [place] # 1.1 x10^3/uL (0.3-0.8) H 04/23/17 04:20 Eos # 0.1 x10^3/uL (0.0-0.2) 04/23/17 04:20 Baso # 0.0 X10^3/uL (0.0-0.1) 04/23/17 04:20 Absolute Nucleated RBC 0.0 /100WBC 04/23/17 04:20 Sodium 146 mmol/L (136-145) H 04/23/17 04:20 Corrected Sodium 147 mmol/L (136-145) H 04/23/17 04:20 Potassium 3.5 mmol/L (3.5-5.1) 04/23/17 08:18 Chloride 108 mmol/L (98-107) H 04/23/17 04:20 Carbon Dioxide 31.5 mmol/L (21-32) 04/23/17 04:20 BUN 18 mg/dL (7-18) 04/23/17 04:20 Creatinine 0.77 mg/dL (0.55-1.02) 04/23/17 04:20 Est GFR (MDRD) Af Amer > 60 (>60) 04/23/17 04:20 Est GFR (MDRD) Non-Af > 60 (>60) 04/23/17 04:20 Glucose 124 mg/dL (65-99) H 04/23/17 04:20 Calcium 8.3 mg/dL (8.5-10.1) L 04/23/17 04:20 Corrected Calcium 9.5 mg/dL (8.5-10.1) 04/23/17 04:20 Magnesium 1.8 mg/dL (1.7-2.9) 04/22/17 05:00 Total Bilirubin 0.50 mg/dL (0.2-1.0) 04/23/17 04:20 AST 15 Units/L (15-37) 04/23/17 04:20 ALT 57 Units/L (12-78) 04/23/17 04:20 Alkaline Phosphatase 56 Units/L (46-116) 04/23/17 04:20 Total Protein 5.6 g/dL (6.4-8.2) L 04/23/17 04:20 Albumin 2.5 g/dL (3.4-5.0) L 04/23/17 04:20 Globulin 3.1 g/dL (2.5-4.5) 04/23/17 04:20 Albumin/Globulin Ratio 0.8 Ratio (1.1-2.1) L 04/23/17 04:20 Specimen Type Catherized urine 04/21/17 00:20 Urine Color Yellow (YELLOW) 04/21/17 00:20 Urine Appearance Hazy (CLEAR) 04/21/17 00:20 Urine pH 5.0 (5.0 - 8.0) 04/21/17 00:20 Ur Specific [place] 1.025 (1.000-1.030) 04/21/17 00:20 Urine Protein 3+ (NEGATIVE) 04/21/17 00:20 Urine Glucose (UA) Negative (NEGATIVE) 04/21/17 00:20 Urine Ketones 4+ (NEGATIVE) 04/21/17 00:20 Urine Occult Blood 3+ (NEGATIVE) 04/21/17 00:20 Urine Nitrite Negative (NEGATIVE) 04/21/17 00:20 Urine Bilirubin Negative (NEGATIVE) 04/21/17 00:20 Urine Urobilinogen Normal (NORMAL) 04/21/17 00:20 Ur Leukocyte Esterase 1+ (NEGATIVE) 04/21/17 00:20 Urine RBC 2-6 /HPF (NEGATIVE) 04/21/17 00:20 Urine WBC 5-10 /HPF (NEGATIVE) 04/21/17 00:20 Ur Squamous Epith Cells Few /HPF (NEGATIVE) 04/21/17 00:20 Amorphous Sediment 1+ /HPF (NEGATIVE) 04/21/17 00:20 Urine Bacteria 1+ /HPF (NEGATIVE) 04/21/17 00:20 Urine Mucus Few /HPF (NEGATIVE) 04/21/17 00:20 Ur Culture Indicated? Yes/culture set up 04/21/17 00:20 - Plan (1) History of open sigmoidectomy Status: Acute Plan: CIPRO IV, FLAGYL IV, WOUND CARE, CONTINUE TO MONITOR (2) Rectal prolapse Status: Acute Plan: S/P SIGMOIDECTOMY, CIPRO IV, FLAGYL IV, CONTINUE TO MONITOR (3) Atelectasis of left lung Status: Acute Plan: LEVAQUIN IV, ZOSYN IV, CONTINUE TO MONITOR (4) Ileus following gastrointestinal surgery Status: Acute Plan: Await bowel function, continue NG tube, continue to monitor labs and kub
[2017-04-23] MEDS: LEVAQUIN PREMIX IV 750 MG 750 MG/150 ML BAG IV SCH (11:26)
[2017-04-23] MEDS: RESTORIL CAP 15 MG PO PRN (21:17)
[2017-04-23] MEDS: MIRALAX POWDER (1 DOSE 17GM) PO SCH (21:17)
[2017-04-24] MEDS: NS 1000 ML 1,000 ML IV SCH ×2 (01:05→18:29)
[2017-04-24 05:13] LABS: BASOPHILS % (AUTO) 0.2 % (0.2-1.0); EOSINOPHILS # (AUTO) 0.1 x10^3/uL (0.0-0.2); EOSINOPHILS % (AUTO) 0.8 % (0.9-2.9); HEMATOCRIT 32.1 % (36.0-47.0); LYMPHOCYTES # (AUTO) 0.8 X10^3/uL (1.3-2.9); MEAN CORPUSCULAR HEMOGLOBIN 31.7 pg (27.0-34.0); MEAN CORPUSCULAR HGB CONC 34.4 g/dL (33.0-35.0); MEAN CORPUSCULAR VOLUME 91.9 fL (80.0-100.0); MONOCYTES # (AUTO) 1.2 x10^3/uL (0.3-0.8); MONOCYTES % (AUTO) 8.7 % (0.0-13.0); NEUTROPHILS # (AUTO) 11.2 x10^3/uL (2.2-4.8); NEUTROPHILS % (AUTO) 84.3 % (42.0-75.0); PLATELET COUNT 206 X10^3/uL (150.0-450.0); RED BLOOD COUNT 3.49 X10^6/uL (3.5-5.4); RED CELL DISTRIBUTION WIDTH 12.8 % (11.6-16.5); WHITE BLOOD COUNT 13.2 X10^3/uL (3.6-10.0)
[2017-04-24 05:32] LABS: ALANINE AMINOTRANSFERASE 46 Units/L (12-78); ALBUMIN 2.5 g/dL (3.4-5.0); ALKALINE PHOSPHATASE 53 Units/L (46-116); ASPARTATE AMINO TRANSFERASE 14 Units/L (15-37); BLOOD UREA NITROGEN 18 mg/dL (7-18); CALCIUM 8.1 mg/dL (8.5-10.1); CARBON DIOXIDE 32.8 mmol/L (21-32); CHLORIDE 108 mmol/L (98-107); COR CA(FOR HYPOALB) 9.3 mg/dL (8.5-10.1); COR NA(FOR HYPERGLY) 146 mmol/L (136-145); CREATININE 0.72 mg/dL (0.55-1.02); GLUCOSE 123 mg/dL (65-99); SODIUM 145 mmol/L (136-145); TOTAL PROTEIN 5.5 g/dL (6.4-8.2); eGFR BLACK RACES > 60 (>60); eGFR NON BLACK RACES > 60 (>60)
[2017-04-24] MEDS: CARDIZEM SR 60 MG PO SCH ×3 (05:57→21:23)
--- NOTE | 2017-04-24 06:50 | RAD ---
HISTORY: Shortness of breath Study: AP portable chest Comparison: April 23, 2017 Findings: The heart remains enlarged. No congestive heart failure is noted. The right lung is hyperinflated bu t clear. The left upper lobe remains clear. Once again noted is abnormal parenchymal density in the retrocardiac area of the left lower lobe silhouetting out the left hemidiaphragm. This is likely due to left lower lobe volume loss although associated infiltrate and pleural effusion could not be exc luded. These findings are stable when compared with the prior examination. The bony thorax is unrema rkable. IMPRESSION: Persistent increased density in the retrocardiac area left lower lobe likely due to left lower lobe volume loss although associated infiltrate or effusion could not be excluded. Follow up until comple te resolution is recommended in order to exclude proximal neoplasm Cardiomegaly without congestive heart failure Reported By:
--- NOTE | 2017-04-24 06:53 | RAD ---
HISTORY: Abdominal pain, abdominal distension Study: KUB Comparison: April 23, 2017 Findings: The nasogastric tube present on the prior examination is not well visualized on this examination. Ga s is identified within the small and large bowel. There is some dilated small bowel. Once again note d which could be related to postoperative ileus or developing small bowel obstruction. Clinical ivanna elation and follow up is recommended in order to determine if further evaluation with CT is indicate d. No abnormal masses or abnormal calcifications are identified. Surgical kenan are present in the mid abdomen the regional skeleton is intact. IMPRESSION: No significant change from the prior examination Reported By:
[2017-04-24] MEDS: DUONEB 0.5 MG/3 MG NEB SCH ×4 (09:40→21:02)
[2017-04-24] MEDS: LEVAQUIN PREMIX IV 750 MG 750 MG/150 ML BAG IV SCH (09:41)
--- NOTE | 2017-04-24 13:26 | PCM.PROG ---
Progress Note - Progress Note for Day of Date: 04/24/17 - Subjective Subjective: IS ALERT AND ORIENTED, LYING IN BED ON MORNING ROUNDS. SHE REPORTS FEELING MUCH BETTER COMPARED TO PREVIOUS DAYS. SHE IS NOTED WITH NG TUBE, CLAMPED AT THIS TIME. LUNG SOUNDS CONTINUE TO BE DIMINISHED ON LEFT SIDE. BOWEL SOUNDS HYPOACTIVE. MIDLINE ABDOMINAL INCISION OPEN TO AIR WITH NO S/SX INFECTION NOTED. FARHAT INTACT. VITALS THIS AM ARE 98.1-85-19-93%-142/59. CBC WNL EXCEPT WBC 13.2, RBC 3.49, HGB 11.0, HCT 32.1. CMP WNL EXCEPT SODIUM 145, POTASSIUM 3.1, CHLORIDE 108, GLUCOSE 123, CALCIUM 8.1, AST 14, TOTAL PROTEIN 5.5 , ALBUMIN 2.5. KUB REPORTED NO SIGNIFICANT CHANGE FROM THE PRIOR EXAMINATION. CHEST XRAY REPORTED PERSISTENT INCREASED DENSITY IN THE RETROCARDIAC AREA LEFT LOWER LOBE LIKELY DUE TO LEFT LOWER LOBE VOLUME LOSS ALTHOUGH ASSOCIATED INFILTRATE OR EFFUSION COUL NOT BE EXCLUDED, ALSO REPORTS CARDIOMEGALY WITHOUT CHF. WE WILL CONTINUE WITH CURRENT PLAN OF CARE. WE WILL RECHECK LABS AND FOLLOW UP WITH PATIENT IN AM. - Past Medical Family Social History Past Med/Fam/Surg Hx: No changes since H&P Allergies: Allergies No Known Drug Allergies Allergy (Verified 04/20/17 18:24) - Review of Systems ROS: No change since H&P - Vital Signs and I&O's Vital Signs: Temperature 97.1 F Pulse Rate [Left Brachial] 84 Pulse Rate 78 Respiratory Rate 21 Blood Pressure [Left Arm] 146/79 O2 Sat by Pulse Oximetry 98 Intake and Output: Intake & Output 04/22/17 04/23/17 04/24/17 04/25/17 11:59 11:59 11:59 11:59 Intake Total 1308 2182 1757 Output Total 2325 3200 900 Balance -1017 -1018 857 - Physical Exam Oriented: Normal, Time, Person Eyes: Normal Ear: Normal Nose: Normal Throat: Normal Respiratory: Diminished (LEFT LUNG), OTHER Cardiovascular: Normal : Normal Auscultation: Bowel Sounds: Decreased. negative: Normal, Bruit, Absent, Increased, High Pitched, Other Palpation: Normal Tenderness: Diffuse, Moderate, Guarding Skin: Wound (MIDLINE ABDOMINAL SURGICAL WOUND ) Musculoskeletal: Normal. negative: Right, Left, Shoulder, Clavicle, Arm, Elbow , Forearm, Wrist, Hand, Hip, Thigh, Knee, Leg, Ankle, Foot, Back:Thoracic, Back: Lumbar, Back:Midline, Back:Paraspinous, Pelvis, Swelling, Tender, Deformity, Pulse Deficit, Motor Deficit, Sensory Deficit, Instability, Crepitance Psychiatric: Normal. negative: Anxiety, Depression, Agitation, Other Mood Description: Calm. negative: Angry, Apathetic, Depressed, Fearful, Flat, Happy, Hostile, Sad, Suspicious, Withdrawn, Anxious, Appropriate, Labile Affect: Normal Speech Pattern: Clear, Appropriate - Laboratory and Diagnostics Result Diagrams: 04/24/17 04:45 04/24/17 12:21 Labs: 04/21/17 00:20 Urine,Catheterized Urine Culture - Final Laboratory WBC 13.2 X10^3/uL (3.6-10.0) H 04/24/17 04:45 RBC 3.49 X10^6/uL (3.5-5.4) L 04/24/17 04:45 Hgb 11.0 g/dL (12.0-16.0) L 04/24/17 04:45 Hct 32.1 % (36.0-47.0) L 04/24/17 04:45 MCV 91.9 fL (80.0-100.0) 04/24/17 04:45 MCH 31.7 pg (27.0-34.0) 04/24/17 04:45 MCHC 34.4 g/dL (33.0-35.0) 04/24/17 04:45 RDW 12.8 % (11.6-16.5) 04/24/17 04:45 Plt Count 206 X10^3/uL (150.0-450.0) 04/24/17 04:45 MPV 9.0 fL (7.4-11.0) 04/24/17 04:45 Neut % 84.3 % (42.0-75.0) H 04/24/17 04:45 Lymph % 6.0 % (21.0-51.0) L 04/24/17 04:45 [place] % 8.7 % (0.0-13.0) 04/24/17 04:45 Eos % 0.8 % (0.9-2.9) L 04/24/17 04:45 Baso % 0.2 % (0.2-1.0) 04/24/17 04:45 Neut # 11.2 x10^3/uL (2.2-4.8) H 04/24/17 04:45 Lymph # 0.8 X10^3/uL (1.3-2.9) L 04/24/17 04:45 [place] # 1.2 x10^3/uL (0.3-0.8) H 04/24/17 04:45 Eos # 0.1 x10^3/uL (0.0-0.2) 04/24/17 04:45 Baso # 0.0 X10^3/uL (0.0-0.1) 04/24/17 04:45 Absolute Nucleated RBC 0.0 /100WBC 04/24/17 04:45 Sodium 145 mmol/L (136-145) 04/24/17 04:55 Corrected Sodium 146 mmol/L (136-145) H 04/24/17 04:55 Potassium 4.2 mmol/L (3.5-5.1) 04/24/17 12:21 Chloride 108 mmol/L (98-107) H 04/24/17 04:55 Carbon Dioxide 32.8 mmol/L (21-32) H 04/24/17 04:55 BUN 18 mg/dL (7-18) 04/24/17 04:55 Creatinine 0.72 mg/dL (0.55-1.02) 04/24/17 04:55 Est GFR (MDRD) Af Amer > 60 (>60) 04/24/17 04:55 Est GFR (MDRD) Non-Af > 60 (>60) 04/24/17 04:55 Glucose 123 mg/dL (65-99) H 04/24/17 04:55 Calcium 8.1 mg/dL (8.5-10.1) L 04/24/17 04:55 Corrected Calcium 9.3 mg/dL (8.5-10.1) 04/24/17 04:55 Magnesium 1.8 mg/dL (1.7-2.9) 04/22/17 05:00 Total Bilirubin 0.40 mg/dL (0.2-1.0) 04/24/17 04:55 AST 14 Units/L (15-37) L 04/24/17 04:55 ALT 46 Units/L (12-78) 04/24/17 04:55 Alkaline Phosphatase 53 Units/L (46-116) 04/24/17 04:55 Total Protein 5.5 g/dL (6.4-8.2) L 04/24/17 04:55 Albumin 2.5 g/dL (3.4-5.0) L 04/24/17 04:55 Globulin 3.0 g/dL (2.5-4.5) 04/24/17 04:55 Albumin/Globulin Ratio 0.8 Ratio (1.1-2.1) L 04/24/17 04:55 Specimen Type Catherized urine 04/21/17 00:20 Urine Color Yellow (YELLOW) 04/21/17 00:20 Urine Appearance Hazy (CLEAR) 04/21/17 00:20 Urine pH 5.0 (5.0 - 8.0) 04/21/17 00:20 Ur Specific [place] 1.025 (1.000-1.030) 04/21/17 00:20 Urine Protein 3+ (NEGATIVE) 04/21/17 00:20 Urine Glucose (UA) Negative (NEGATIVE) 04/21/17 00:20 Urine Ketones 4+ (NEGATIVE) 04/21/17 00:20 Urine Occult Blood 3+ (NEGATIVE) 04/21/17 00:20 Urine Nitrite Negative (NEGATIVE) 04/21/17 00:20 Urine Bilirubin Negative (NEGATIVE) 04/21/17 00:20 Urine Urobilinogen Normal (NORMAL) 04/21/17 00:20 Ur Leukocyte Esterase 1+ (NEGATIVE) 04/21/17 00:20 Urine RBC 2-6 /HPF (NEGATIVE) 04/21/17 00:20 Urine WBC 5-10 /HPF (NEGATIVE) 04/21/17 00:20 Ur Squamous Epith Cells Few /HPF (NEGATIVE) 04/21/17 00:20 Amorphous Sediment 1+ /HPF (NEGATIVE) 04/21/17 00:20 Urine Bacteria 1+ /HPF (NEGATIVE) 04/21/17 00:20 Urine Mucus Few /HPF (NEGATIVE) 04/21/17 00:20 Ur Culture Indicated? Yes/culture set up 04/21/17 00:20 - Plan (1) History of open sigmoidectomy Status: Acute Plan: LEVAQUIN IV, WOUND CARE, CONTINUE TO MONITOR (2) Rectal prolapse Status: Acute Plan: S/P SIGMOIDECTOMY, LEVAQUIN IV, CONTINUE TO MONITOR (3) Atelectasis of left lung Status: Acute Plan: LEVAQUIN IV, CONTINUE TO MONITOR (4) Ileus following gastrointestinal surgery Status: Acute Plan: Await bowel function, continue NG tube, continue to monitor labs and kub
[2017-04-24] MEDS ORDERED: MILK OF MAGNESIA PO ONE (17:24)
[2017-04-24] MEDS: MIRALAX POWDER (1 DOSE 17GM) PO SCH (21:23)
[2017-04-24] MEDS: RESTORIL CAP 15 MG PO PRN (21:23)
[2017-04-25] MEDS: NS 1000 ML 1,000 ML IV SCH (04:42)
[2017-04-25 05:02] LABS: BASOPHILS % (AUTO) 0.2 % (0.2-1.0); EOSINOPHILS # (AUTO) 0.1 x10^3/uL (0.0-0.2); EOSINOPHILS % (AUTO) 0.9 % (0.9-2.9); HEMATOCRIT 31.1 % (36.0-47.0); HEMOGLOBIN 10.9 g/dL (12.0-16.0); LYMPHOCYTES # (AUTO) 0.9 X10^3/uL (1.3-2.9); LYMPHOCYTES % (AUTO) 6.9 % (21.0-51.0); MEAN CORPUSCULAR HEMOGLOBIN 32.1 pg (27.0-34.0); MEAN CORPUSCULAR HGB CONC 34.9 g/dL (33.0-35.0); MEAN CORPUSCULAR VOLUME 92.1 fL (80.0-100.0); MEAN PLATELET VOLUME 9.3 fL (7.4-11.0); MONOCYTES # (AUTO) 1.1 x10^3/uL (0.3-0.8); MONOCYTES % (AUTO) 8.4 % (0.0-13.0); NEUTROPHILS # (AUTO) 10.6 x10^3/uL (2.2-4.8); NEUTROPHILS % (AUTO) 83.6 % (42.0-75.0); PLATELET COUNT 218 X10^3/uL (150.0-450.0); RED BLOOD COUNT 3.38 X10^6/uL (3.5-5.4); RED CELL DISTRIBUTION WIDTH 12.9 % (11.6-16.5); WHITE BLOOD COUNT 12.6 X10^3/uL (3.6-10.0)
[2017-04-25 05:28] LABS: ALANINE AMINOTRANSFERASE 36 Units/L (12-78); ALBUMIN 2.5 g/dL (3.4-5.0); ALKALINE PHOSPHATASE 51 Units/L (46-116); ASPARTATE AMINO TRANSFERASE 13 Units/L (15-37); BLOOD UREA NITROGEN 17 mg/dL (7-18); CALCIUM 8.3 mg/dL (8.5-10.1); CARBON DIOXIDE 32.5 mmol/L (21-32); CHLORIDE 109 mmol/L (98-107); COR CA(FOR HYPOALB) 9.5 mg/dL (8.5-10.1); COR NA(FOR HYPERGLY) 145 mmol/L (136-145); CREATININE 0.72 mg/dL (0.55-1.02); GLUCOSE 116 mg/dL (65-99); SODIUM 145 mmol/L (136-145); TOTAL PROTEIN 5.4 g/dL (6.4-8.2); eGFR BLACK RACES > 60 (>60); eGFR NON BLACK RACES > 60 (>60)
[2017-04-25] MEDS: CARDIZEM SR 60 MG PO SCH ×2 (05:56→14:09)
--- NOTE | 2017-04-25 06:13 | RAD ---
HISTORY: Abdominal distension Study: KUB Comparison: April 24, 2017 Findings: Gas is once again identified in the small and large bowel. There is a dilated small bowel low in the right abdomen unchanged from the prior examination. Findings are consistent either with ileus or sm all bowel obstruction and the appearance is not significantly changed from prior examination. No abn ormal masses or abnormal calcifications are identified. IMPRESSION: No significant change from the prior examination Reported By:
--- NOTE | 2017-04-25 06:22 | RAD ---
HISTORY: Shortness of breath Study: AP portable chest Comparison: April 24, 2017 Findings: The heart is enlarged. No congestive heart failure is noted. The aorta is calcified. The right lung is mildly hyperinflated but clear. The left upper lobe is clear. There is persistent increased densi ty in the retrocardiac area left lower lobe silhouetting out the medial left hemidiaphragm. 's could be due to left lower lobe volume loss is, infiltrate, effusion or a combination. It is unchanged in appearance from the prior examination. The left hemidiaphragm is elevated. The bony thorax is unrem arkable. IMPRESSION: No significant change from the prior examination Reported By:
[2017-04-25] MEDS: LEVAQUIN PREMIX IV 750 MG 750 MG/150 ML BAG IV SCH (08:54)
[2017-04-25] MEDS: DUONEB 0.5 MG/3 MG NEB SCH ×2 (09:33→12:15)
--- NOTE | 2017-04-25 09:34 | PCM.PROG ---
Progress Note - Subjective Subjective: (-) N/V. (+) BM. Tolerating CL. (+) OOB. Pain controlled. - Past Medical Family Social History Past Med/Fam/Surg Hx: No changes since H&P Allergies: Allergies No Known Drug Allergies Allergy (Verified 04/20/17 18:24) - Review of Systems ROS: No change since H&P - Vital Signs and I&O's Vital Signs: Temperature 98.1 F Pulse Rate [Left Brachial] 90 Pulse Rate 90 Respiratory Rate 24 Blood Pressure [Left Arm] 135/57 O2 Sat by Pulse Oximetry 95 Intake and Output: Intake & Output 04/22/17 04/23/17 04/24/17 04/25/17 11:59 11:59 11:59 11:59 Intake Total 1308 2182 1757 1070 Output Total 2325 3200 900 Balance -1017 -1634 687 3733 - Physical Exam Oriented: Normal, Time, Person, Place Eyes: Normal Ear: Normal Nose: Normal Throat: Normal Respiratory: Diminished (LEFT LUNG), OTHER Cardiovascular: Normal : Normal Auscultation: Bowel Sounds: Normal. negative: Bruit, Absent, Increased, High Pitched, Other Palpation: Other (Slight distention. Incision C/D/I. [place] in place.) Tenderness: Normal Skin: Normal Musculoskeletal: Normal. negative: Right, Left, Shoulder, Clavicle, Arm, Elbow , Forearm, Wrist, Hand, Hip, Thigh, Knee, Leg, Ankle, Foot, Back:Thoracic, Back: Lumbar, Back:Midline, Back:Paraspinous, Pelvis, Swelling, Tender, Deformity, Pulse Deficit, Motor Deficit, Sensory Deficit, Instability, Crepitance Psychiatric: Normal. negative: Anxiety, Depression, Agitation, Other Mood Description: Calm. negative: Angry, Apathetic, Depressed, Fearful, Flat, Happy, Hostile, Sad, Suspicious, Withdrawn, Anxious, Appropriate, Labile Affect: Normal Speech Pattern: Clear, Appropriate - Laboratory and Diagnostics Result Diagrams: 04/25/17 03:25 04/25/17 03:25 Labs: 04/21/17 00:20 Urine,Catheterized Urine Culture - Final Laboratory WBC 12.6 X10^3/uL (3.6-10.0) H 04/25/17 03:25 RBC 3.38 X10^6/uL (3.5-5.4) L 04/25/17 03:25 Hgb 10.9 g/dL (12.0-16.0) L 04/25/17 03:25 Hct 31.1 % (36.0-47.0) L 04/25/17 03:25 MCV 92.1 fL (80.0-100.0) 04/25/17 03:25 MCH 32.1 pg (27.0-34.0) 04/25/17 03:25 MCHC 34.9 g/dL (33.0-35.0) 04/25/17 03:25 RDW 12.9 % (11.6-16.5) 04/25/17 03:25 Plt Count 218 X10^3/uL (150.0-450.0) 04/25/17 03:25 MPV 9.3 fL (7.4-11.0) 04/25/17 03:25 Neut % 83.6 % (42.0-75.0) H 04/25/17 03:25 Lymph % 6.9 % (21.0-51.0) L 04/25/17 03:25 [place] % 8.4 % (0.0-13.0) 04/25/17 03:25 Eos % 0.9 % (0.9-2.9) 04/25/17 03:25 Baso % 0.2 % (0.2-1.0) 04/25/17 03:25 Neut # 10.6 x10^3/uL (2.2-4.8) H 04/25/17 03:25 Lymph # 0.9 X10^3/uL (1.3-2.9) L 04/25/17 03:25 [place] # 1.1 x10^3/uL (0.3-0.8) H 04/25/17 03:25 Eos # 0.1 x10^3/uL (0.0-0.2) 04/25/17 03:25 Baso # 0.0 X10^3/uL (0.0-0.1) 04/25/17 03:25 Absolute Nucleated RBC 0.0 /100WBC 04/25/17 03:25 Sodium 145 mmol/L (136-145) 04/25/17 03:25 Corrected Sodium 145 mmol/L (136-145) 04/25/17 03:25 Potassium 3.9 mmol/L (3.5-5.1) 04/25/17 03:25 Chloride 109 mmol/L (98-107) H 04/25/17 03:25 Carbon Dioxide 32.5 mmol/L (21-32) H 04/25/17 03:25 BUN 17 mg/dL (7-18) 04/25/17 03:25 Creatinine 0.72 mg/dL (0.55-1.02) 04/25/17 03:25 Est GFR (MDRD) Af Amer > 60 (>60) 04/25/17 03:25 Est GFR (MDRD) Non-Af > 60 (>60) 04/25/17 03:25 Glucose 116 mg/dL (65-99) H 04/25/17 03:25 Calcium 8.3 mg/dL (8.5-10.1) L 04/25/17 03:25 Corrected Calcium 9.5 mg/dL (8.5-10.1) 04/25/17 03:25 Magnesium 1.8 mg/dL (1.7-2.9) 04/22/17 05:00 Total Bilirubin 0.40 mg/dL (0.2-1.0) 04/25/17 03:25 AST 13 Units/L (15-37) L 04/25/17 03:25 ALT 36 Units/L (12-78) 04/25/17 03:25 Alkaline Phosphatase 51 Units/L (46-116) 04/25/17 03:25 Total Protein 5.4 g/dL (6.4-8.2) L 04/25/17 03:25 Albumin 2.5 g/dL (3.4-5.0) L 04/25/17 03:25 Globulin 2.9 g/dL (2.5-4.5) 04/25/17 03:25 Albumin/Globulin Ratio 0.9 Ratio (1.1-2.1) L 04/25/17 03:25 Specimen Type Catherized urine 04/21/17 00:20 Urine Color Yellow (YELLOW) 04/21/17 00:20 Urine Appearance Hazy (CLEAR) 04/21/17 00:20 Urine pH 5.0 (5.0 - 8.0) 04/21/17 00:20 Ur Specific [place] 1.025 (1.000-1.030) 04/21/17 00:20 Urine Protein 3+ (NEGATIVE) 04/21/17 00:20 Urine Glucose (UA) Negative (NEGATIVE) 04/21/17 00:20 Urine Ketones 4+ (NEGATIVE) 04/21/17 00:20 Urine Occult Blood 3+ (NEGATIVE) 04/21/17 00:20 Urine Nitrite Negative (NEGATIVE) 04/21/17 00:20 Urine Bilirubin Negative (NEGATIVE) 04/21/17 00:20 Urine Urobilinogen Normal (NORMAL) 04/21/17 00:20 Ur Leukocyte Esterase 1+ (NEGATIVE) 04/21/17 00:20 Urine RBC 2-6 /HPF (NEGATIVE) 04/21/17 00:20 Urine WBC 5-10 /HPF (NEGATIVE) 04/21/17 00:20 Ur Squamous Epith Cells Few /HPF (NEGATIVE) 04/21/17 00:20 Amorphous Sediment 1+ /HPF (NEGATIVE) 04/21/17 00:20 Urine Bacteria 1+ /HPF (NEGATIVE) 04/21/17 00:20 Urine Mucus Few /HPF (NEGATIVE) 04/21/17 00:20 Ur Culture Indicated? Yes/culture set up 04/21/17 00:20 - Plan (1) Rectal prolapse Status: Acute Narrative Support Text: Stable post-op. Bowel function returning to normal. (+) BM. (-) f/c. OK discharge from surgery stdpt. Plan: Discharge. Routine post-op care. f/u 1 week for staple removal. Recommend probiotics or yogurt. (2) Atelectasis of left lung Status: Acute Narrative Support Text: Improved on exam. Discussed with patient pulmonary toilet at home. Patient reports meds for nebulizer at home. Plan: Change to levaquin PO on discharge.
[2017-04-25 13:14] VITALS: BP 135/70
== END 2017-04-26 20:15 | disposition home or self-care (01) | DRG 394 ==
LOC: ICU 11:06 → UNDODISIN 04-25 15:40
PROVIDERS: ADMIT Internal Medicine; ATTEND Internal Medicine
PROC: 0D9670Z Drainage of Stomach with Drainage Device, Via Natural or Artificial Opening (ICD-10-PCS; principal; 2017-04-21)
DX: K62.3 Rectal prolapse (principal); J98.11 Atelectasis; R06.02 Shortness of breath; J44.9 Chronic obstructive pulmonary disease, unspecified; E78.2 Mixed hyperlipidemia; M13.89 Other specified arthritis, multiple sites; K21.9 Gastro-esophageal reflux disease without esophagitis; Z98.890 Other specified postprocedural states; I48.91 Unspecified atrial fibrillation; K91.3 Postprocedural intestinal obstruction; E87.6 Hypokalemia; I51.7 Cardiomegaly
CPT/HCPCS: 36415; 71010; 74000; 74176; 80053; 81001; 83735; 84132; 85025; 87086; 93005; 94640; 94760; 96365; 99231; 99284; A4216; A4222; S0030; J0744; J1160; J1956; J2405; J2543; J7506; J7608; J7613; J7620

== ENCOUNTER 2017-04-25 18:24 | Inpatient (IN) | payer OTHER ==
--- NOTE | 2017-04-25 18:30 | DR.GENAD ---
HPI - HPI Comment HPI Comment: POST BOWEL RESECTION. WENT TO BATHROOM AND FELT PROLAPSE INTO HER VAGINAL AREA WITH BLEEDING. SOME ABDOMINAL PAIN PRESENT LOWER ABDOMEN. - Complaint/Symptoms Chief Complaint Doctors Comments: BLADDER PROLAPSE WITH BLEEDING. 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, Hysterectomy, Ortho Surgery, Tonsillectomy - Family History Family Medical History: Diabetes Mellitus, Cancer, [place] ROS - Review of Systems Constitutional: Weakness, Fatigue Eyes: No Symptoms Reported ENTM: No Symptoms Reported Respiratoy: No Symptoms Reported Cardiovascular: No Symptoms Reported Gastrointestinal/Abdominal: Abdominal Pain Neurological: No Symptoms Reported Musculoskeletal: No Symptoms Reported Integumentary: No Symptoms Reported Hematologic/Lymphatic: No Symptoms Reported Endocrine: No Symptoms Reported PE - Vital Signs Vitals: Temperature 98.6 F Pulse Rate 83 Respiratory Rate 18 Blood Pressure [Left Arm] 135/70 Blood Pressure 133/64 O2 Sat by Pulse Oximetry 97 - General Limitations: No Limitations General Appearance: Alert - Head Head Exam: Normal Inspection - Eyes Eye exam: Normal Appearance - ENT ENT Exam: Normal External Ear Exam External Ear Exam: Normal External Inspection TM/Canal Exam: Bilateral Normal Nose Exam: Normal Nose Exam Mouth Exam: Normal Inspection Throat Exam: Normal Inspection - Neck Neck Exam: Trachea Midline - Chest Chest Inspection: Symmetric Chest Wall Rise - Respiratory Respiratory Exam: Normal Lung Sounds Bilat Respiratory Exam: Bilateral Clear to Auscultation - Cardiovascular Cardiovascular Exam: Regular Rate, Normal Rhythm, Normal Heart Sounds - Abdominal Exam Abdominal Exam: Normal Bowel Sounds, Soft, Tenderness Abdominal Tenderness: RLQ, LLQ, Suprapubic, Other (PROLASE VAGINAL AREA.) - Extremities Extremities Exam: Normal Inspection - Back Back Exam: Normal Inspection - Neurologic Neurological Exam: Alert, Oriented X3 - Psychiatric Psychiatric Exam: Normal Affect, Normal Mood - Skin Skin Exam: Normal Color MDM - Additional Information Additional Information Obtained From: Family - Differential Diagnosis Differential Diagnosis: BLADDER PROLASE, ABDOMINAL PAIN Course - Treatment Treatment: SEE ORDERS. - Consultation Consultation Comments: DISCUSS PATIENT WITH DR. BANG. HE WILL ADMIT PATIENT. - Education/Counseling Education/Counseling: Patient, Family Educated On: Diagnosis ROR - Labs Reviewed Laboratory Results Reviewed?: Yes Result Diagrams: 04/25/17 19:07 04/25/17 19:07 Laboratory: WBC 13.0 X10^3/uL (3.6-10.0) H 04/25/17 19:07 RBC 3.56 X10^6/uL (3.5-5.4) 04/25/17 19:07 Hgb 11.1 g/dL (12.0-16.0) L 04/25/17 19:07 Hct 32.7 % (36.0-47.0) L 04/25/17 19:07 MCV 91.7 fL (80.0-100.0) 04/25/17 19:07 MCH 31.3 pg (27.0-34.0) 04/25/17 19:07 MCHC 34.1 g/dL (33.0-35.0) 04/25/17 19:07 RDW 13.2 % (11.6-16.5) 04/25/17 19:07 Plt Count 226 X10^3/uL (150.0-450.0) 04/25/17 19:07 MPV 8.9 fL (7.4-11.0) 04/25/17 19:07 Neut % 83.4 % (42.0-75.0) H 04/25/17 19:07 Lymph % 7.6 % (21.0-51.0) L 04/25/17 19:07 Cochran % 7.3 % (0.0-13.0) 04/25/17 19:07 Eos % 1.0 % (0.9-2.9) 04/25/17 19:07 Baso % 0.7 % (0.2-1.0) 04/25/17 19:07 Neut # 10.8 x10^3/uL (2.2-4.8) H 04/25/17 19:07 Lymph # 1.0 X10^3/uL (1.3-2.9) L 04/25/17 19:07 Cochran # 0.9 x10^3/uL (0.3-0.8) H 04/25/17 19:07 Eos # 0.1 x10^3/uL (0.0-0.2) 04/25/17 19:07 Baso # 0.1 X10^3/uL (0.0-0.1) 04/25/17 19:07 Absolute Nucleated RBC 0.0 /100WBC 04/25/17 19:07 - XRAY XRAY Interpreted by: Radiologist XRAY Findings: REPORT DISCUSS WITH PATIENT. - Diagnosis Discharge Problem: Prolapse of bladder, Post-operative state, Pleural effusion, Pericardial effusion, Vaginal bleeding Abdominal pain Qualifiers: Abdominal location: generalized Qualified Code(s): R10.84 - Generalized abdominal pain - Discharge Plan Disposition: ADMITTED INPATIENT Condition: Stable - Follow ups/Referrals - Instructions
[2017-04-25 19:16] LABS: BASOPHILS # (AUTO) 0.1 X10^3/uL (0.0-0.1); BASOPHILS % (AUTO) 0.7 % (0.2-1.0); EOSINOPHILS # (AUTO) 0.1 x10^3/uL (0.0-0.2); HEMATOCRIT 32.7 % (36.0-47.0); HEMOGLOBIN 11.1 g/dL (12.0-16.0); LYMPHOCYTES % (AUTO) 7.6 % (21.0-51.0); MEAN CORPUSCULAR HEMOGLOBIN 31.3 pg (27.0-34.0); MEAN CORPUSCULAR HGB CONC 34.1 g/dL (33.0-35.0); MEAN CORPUSCULAR VOLUME 91.7 fL (80.0-100.0); MEAN PLATELET VOLUME 8.9 fL (7.4-11.0); MONOCYTES # (AUTO) 0.9 x10^3/uL (0.3-0.8); MONOCYTES % (AUTO) 7.3 % (0.0-13.0); NEUTROPHILS # (AUTO) 10.8 x10^3/uL (2.2-4.8); NEUTROPHILS % (AUTO) 83.4 % (42.0-75.0); PLATELET COUNT 226 X10^3/uL (150.0-450.0); RED BLOOD COUNT 3.56 X10^6/uL (3.5-5.4); RED CELL DISTRIBUTION WIDTH 13.2 % (11.6-16.5)
[2017-04-25 19:28] LABS: ALANINE AMINOTRANSFERASE 36 Units/L (12-78); ALBUMIN 2.7 g/dL (3.4-5.0); ALKALINE PHOSPHATASE 57 Units/L (46-116); ASPARTATE AMINO TRANSFERASE 17 Units/L (15-37); BLOOD UREA NITROGEN 16 mg/dL (7-18); CARBON DIOXIDE 30.2 mmol/L (21-32); CHLORIDE 107 mmol/L (98-107); COR NA(FOR HYPERGLY) 142 mmol/L (136-145); CREATININE 0.76 mg/dL (0.55-1.02); GLUCOSE 111 mg/dL (65-99); SODIUM 142 mmol/L (136-145); TOTAL PROTEIN 5.9 g/dL (6.4-8.2); eGFR BLACK RACES > 60 (>60); eGFR NON BLACK RACES > 60 (>60)
--- NOTE | 2017-04-25 20:36 | CT ---
CT OF THE ABDOMEN AND PELVIS WITHOUT CONTRAST HISTORY: Bleeding from vagina or rectum. Comparison: 04/17/2017 Technique: Multiple axial images of the abdomen and pelvis were obtained from the lung bases to the pubic symphy sis without the administration of IV contrast. Dose reduction techniques including Automated Exposur e Control (AEC) and adjustment of mA and kV were utlized. Findings: The heart is normal in size. Small pericardial fusion has worsened since prior. Interval development of small bilateral pleural effusions with atelectasis of the lung base. The sensitivity for focal lesion detection within the solid abdominal viscera is diminished without t he use of IV contrast. The focus of high attenuation layering dependently within the stomach best seen on series 3 image 7. Liver and spleen are normal in size, and contour. No focal lesions. No ductal dilitation. Gallbladder not well seen. 1.1 cm cystic structure arising from the tail the pancreas on series 3, image 18 whic h is unchanged. Adrenal glands are normal. Kidneys are normal in contour without hydronephrosis or ne phrolithiasis. Patient appears of undergone interval distal colectomy. There is diffuse dilation of the small bowel and the proximal portion of the large bowel. No abnormal appearing mesenteric or retroperitoneal lym ph nodes. No free fluid or fluid collections. The bladder is normal in appearance. Status post hysterectomy. No free fluid or abnormal pelvic lymph nodes. No aggressive osseous lesions. IMPRESSION: 1. Findings of high attenuation material within the stomach which suggests possible active gastric b leed. Given its distance from the rectum, this would be unlikely to cause rectal bleeding however. 2. Interval abdominal surgery and partial colectomy with ileus like pattern of the remaining small la rge bowel. 3. Interval appearance of bilateral small pleural effusions with adjacent atelectasis particular invo lving the left lung base. 4. Enlarging small pericardial effusion. Reported By:
--- NOTE | 2017-04-25 22:11 | DR.UPDATE ---
H&P Update History and Physical Update: 'S H&P WAS COMPLETED ON 04/21/17 WITH HER LAST VISIT. SHE WAS DISCHARGED HOME TODAY. SHE IS STATUS POST SIGMOIDECTOMY R/T RECTAL PROLAPSE. [facility] REPORT[facility] GOING TO THE BATHROOM AND FEELING "HEAVINESS AND SWELLING" IN HER VAGINAL AREA. SHE REPORTS VAGINAL BLEEDING AND URINARY FREQUENCY. PATIENT WAS READMITTED FOR FURTHER TREATMENT AND EVALUATION. WE WILL ORDER A ETL PROGRAMMER CONSULT FOR AND CONSULT . Changes noted: NO Yes with the following:
[2017-04-25] MEDS: NS 1000 ML 1,000 ML IV SCH (22:26)
[2017-04-25 22:51] VITALS: BMI 23.5
[2017-04-26] MEDS ORDERED: DUONEB 0.5 MG/3 MG NEB PRN (03:07)
[2017-04-26 05:57] LABS: ALANINE AMINOTRANSFERASE 28 Units/L (12-78); ALBUMIN 2.3 g/dL (3.4-5.0); ALKALINE PHOSPHATASE 48 Units/L (46-116); ASPARTATE AMINO TRANSFERASE 13 Units/L (15-37); BLOOD UREA NITROGEN 13 mg/dL (7-18); CALCIUM 7.6 mg/dL (8.5-10.1); CARBON DIOXIDE 28.2 mmol/L (21-32); CHLORIDE 110 mmol/L (98-107); CREATININE 0.64 mg/dL (0.55-1.02); GLUCOSE 98 mg/dL (65-99); SODIUM 144 mmol/L (136-145); TOTAL PROTEIN 5.1 g/dL (6.4-8.2); eGFR BLACK RACES > 60 (>60); eGFR NON BLACK RACES > 60 (>60)
[2017-04-26 06:22] LABS: BASOPHILS % (AUTO) 0.3 % (0.2-1.0); EOSINOPHILS # (AUTO) 0.2 x10^3/uL (0.0-0.2); EOSINOPHILS % (AUTO) 1.7 % (0.9-2.9); HEMATOCRIT 27.9 % (36.0-47.0); LYMPHOCYTES # (AUTO) 0.9 X10^3/uL (1.3-2.9); LYMPHOCYTES % (AUTO) 8.3 % (21.0-51.0); MEAN CORPUSCULAR HEMOGLOBIN 32.7 pg (27.0-34.0); MEAN CORPUSCULAR HGB CONC 35.7 g/dL (33.0-35.0); MEAN CORPUSCULAR VOLUME 91.7 fL (80.0-100.0); MEAN PLATELET VOLUME 9.5 fL (7.4-11.0); MONOCYTES # (AUTO) 0.8 x10^3/uL (0.3-0.8); MONOCYTES % (AUTO) 7.3 % (0.0-13.0); NEUTROPHILS # (AUTO) 8.9 x10^3/uL (2.2-4.8); NEUTROPHILS % (AUTO) 82.4 % (42.0-75.0); PLATELET COUNT 202 X10^3/uL (150.0-450.0); RED BLOOD COUNT 3.04 X10^6/uL (3.5-5.4); RED CELL DISTRIBUTION WIDTH 13.4 % (11.6-16.5); WHITE BLOOD COUNT 10.8 X10^3/uL (3.6-10.0)
--- NOTE | 2017-04-26 09:09 | DR.CONSULT ---
Consult - Consultation for Day of: Date: 04/26/17 - Chief Complaint Chief Complaint: Apparent vaginal bleeding - Allergies Allergies/Adverse Reactions: Allergies Allergy/AdvReac Type Severity Reaction Status Date / Time No Known Drug Allergies Allergy Verified 04/20/17 18:24 - History of Present Illness History of Present Illness: Pt. is S/P BRAD BSO 1980 for benign indication. Recent surgery for prolapsed colon. Good bowel function. 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 Introitus shows anular region of echymotic tissue around urethral meatus.), Hematuria, Frequency, Discharge (Vagina: clear No lesions), Testicular Pain, Bleeding, , Other - Plan Plan: Recommend referral/evaluation by Urologist.
[2017-04-26] MEDS ORDERED: XANAX PO PRN (10:43)
[2017-04-26] MEDS ORDERED: NORCO 5/325 MG TAB PO PRN (10:43)
[2017-04-26] MEDS ORDERED: PATIENT'S HOME MEDICATION (Omeprazole [Omeprazole] 40 MG) PO SCH (10:45)
[2017-04-26] MEDS ORDERED: PATIENT'S HOME MEDICATION (Budesonide-Formoterol 2 PUFF) PO SCH (10:45)
[2017-04-26] MEDS ORDERED: LEVAQUIN PREMIX IV 500 MG 500 MG/100 ML BAG IV SCH (11:00)
[2017-04-26] MEDS ORDERED: NYSTATIN POWDER TOP SCH (11:00)
[2017-04-26] MEDS ORDERED: PREDNISONE TAB 10 MG PO SCH (11:00)
[2017-04-26] MEDS: NS 1000 ML 1,000 ML IV SCH (12:46)
--- NOTE | 2017-04-26 13:49 | PCM.PROG ---
Progress Note - Progress Note for Day of Date: 04/26/17 - Past Medical Family Social History Past Med/Fam/Surg Hx: No changes since H&P Allergies: Allergies No Known Drug Allergies Allergy (Verified 04/20/17 18:24) - Review of Systems ROS: No change since H&P - Vital Signs and I&O's Vital Signs: Temperature 98.9 F Pulse Rate [Right Brachial] 82 Pulse Rate 83 Respiratory Rate 20 Blood Pressure [Right Arm] 162/68 Blood Pressure [Left Arm] 135/70 Blood Pressure 133/64 O2 Sat by Pulse Oximetry 99 Intake and Output: Intake & Output 04/24/17 04/25/17 04/26/17 04/27/17 11:59 11:59 11:59 11:59 Intake Total 456 Balance 456 - Physical Exam Oriented: Normal Eyes: Normal Ear: Normal Nose: Normal Throat: Normal Respiratory: Normal Cardiovascular: Normal : Dysuria (Ext: normal. Introitus shows anular region of echymotic tissue around urethral meatus.), Hematuria, Frequency, Bleeding. negative: Testicular Pain, , Other Auscultation: Bowel Sounds: Normal Palpation: Normal Tenderness: Diffuse, Mild Skin: Wound (MIDLINE ABDOMINAL SURGICAL WOUND. S/P SIGMOIDECTOMY ) Musculoskeletal: Normal Psychiatric: Normal Mood Description: Calm Affect: Normal Speech Pattern: Clear, Appropriate - Laboratory and Diagnostics Result Diagrams: 04/26/17 04:30 04/26/17 04:30 Labs: Laboratory WBC 10.8 X10^3/uL (3.6-10.0) H 04/26/17 04:30 RBC 3.04 X10^6/uL (3.5-5.4) L 04/26/17 04:30 Hgb 10.0 g/dL (12.0-16.0) L 04/26/17 04:30 Hct 27.9 % (36.0-47.0) L 04/26/17 04:30 MCV 91.7 fL (80.0-100.0) 04/26/17 04:30 MCH 32.7 pg (27.0-34.0) 04/26/17 04:30 MCHC 35.7 g/dL (33.0-35.0) H 04/26/17 04:30 RDW 13.4 % (11.6-16.5) 04/26/17 04:30 Plt Count 202 X10^3/uL (150.0-450.0) 04/26/17 04:30 MPV 9.5 fL (7.4-11.0) 04/26/17 04:30 Neut % 82.4 % (42.0-75.0) H 04/26/17 04:30 Lymph % 8.3 % (21.0-51.0) L 04/26/17 04:30 Mcmullen % 7.3 % (0.0-13.0) 04/26/17 04:30 Eos % 1.7 % (0.9-2.9) 04/26/17 04:30 Baso % 0.3 % (0.2-1.0) 04/26/17 04:30 Neut # 8.9 x10^3/uL (2.2-4.8) H 04/26/17 04:30 Lymph # 0.9 X10^3/uL (1.3-2.9) L 04/26/17 04:30 Mcmullen # 0.8 x10^3/uL (0.3-0.8) 04/26/17 04:30 Eos # 0.2 x10^3/uL (0.0-0.2) 04/26/17 04:30 Baso # 0.0 X10^3/uL (0.0-0.1) 04/26/17 04:30 Absolute Nucleated RBC 0.1 /100WBC 04/26/17 04:30 Sodium 144 mmol/L (136-145) 04/26/17 04:30 Corrected Sodium TNP 04/26/17 04:30 Potassium 3.7 mmol/L (3.5-5.1) 04/26/17 04:30 Chloride 110 mmol/L (98-107) H 04/26/17 04:30 Carbon Dioxide 28.2 mmol/L (21-32) 04/26/17 04:30 BUN 13 mg/dL (7-18) 04/26/17 04:30 Creatinine 0.64 mg/dL (0.55-1.02) 04/26/17 04:30 Est GFR (MDRD) Af Amer > 60 (>60) 04/26/17 04:30 Est GFR (MDRD) Non-Af > 60 (>60) 04/26/17 04:30 Glucose 98 mg/dL (65-99) 04/26/17 04:30 Calcium 7.6 mg/dL (8.5-10.1) L 04/26/17 04:30 Corrected Calcium 9.0 mg/dL (8.5-10.1) 04/26/17 04:30 Total Bilirubin 0.40 mg/dL (0.2-1.0) 04/26/17 04:30 AST 13 Units/L (15-37) L 04/26/17 04:30 ALT 28 Units/L (12-78) 04/26/17 04:30 Alkaline Phosphatase 48 Units/L (46-116) 04/26/17 04:30 Total Protein 5.1 g/dL (6.4-8.2) L 04/26/17 04:30 Albumin 2.3 g/dL (3.4-5.0) L 04/26/17 04:30 Globulin 2.8 g/dL (2.5-4.5) 04/26/17 04:30 Albumin/Globulin Ratio 0.8 Ratio (1.1-2.1) L 04/26/17 04:30
[2017-04-26] MEDS: PROVENTIL NEB TX 0.083% 2.5MG/ 3ML NEB SCH ×2 (13:53→16:56)
[2017-04-26 17:30] VITALS: BP 109/67
[2017-04-26 17:50] LABS: BILIRUBIN,URINE NEGATIVE (NEGATIVE); BLOOD/HEMOGLOBIN,URINE 3+ (NEGATIVE); GLUCOSE, URINE NEGATIVE (NEGATIVE); KETONES,URINE NEGATIVE (NEGATIVE); LEUKOCYTE ESTERASE ,URINE 2+ (NEGATIVE); NITRITES,URINE NEGATIVE (NEGATIVE); PROTEIN,URINE 1+ (NEGATIVE); UROBILINOGEN,URINE NORMAL (NORMAL)
[2017-04-26 17:58] LABS: APPEARANCE,URINE SLIGHTLY HAZY (CLEAR); BACTERIA,URINE TRACE /HPF (NEGATIVE); COLOR,URINE DARK YELLOW (YELLOW); MUCUS,URINE FEW /HPF (NEGATIVE); SQUAMOUS EPITHELIAL CELL,UR FEW /HPF (NEGATIVE)
[2017-04-26] MEDS ORDERED: PULMICORT NEB TX 0.5 MG NEB SCH (21:00)
[2017-04-26] MEDS ORDERED: ZOCOR TAB 20 MG PO SCH (21:00)
[2017-04-26] MEDS ORDERED: DESYREL PO SCH (21:00)
[2017-04-27] MEDS ORDERED: COZAAR PO SCH (09:00)
[2017-04-27] MEDS ORDERED: HYDROCHLOROTHIAZIDE 12.5 MG CAP PO SCH (09:00)
[2017-04-27] MEDS ORDERED: PriLOSEC PO SCH (09:00)
== END 2017-04-26 20:15 | disposition home or self-care (01) | DRG 760 ==
LOC: ER 18:35 → MED/SURG 21:26
PROVIDERS: ADMIT Internal Medicine; ATTEND Internal Medicine
DX: N81.10 Cystocele, unspecified (principal); N93.8 Other specified abnormal uterine and vaginal bleeding; I31.3 Pericardial effusion (noninflammatory); K92.2 Gastrointestinal hemorrhage, unspecified; Z98.890 Other specified postprocedural states; R10.84 Generalized abdominal pain; E78.2 Mixed hyperlipidemia; J44.9 Chronic obstructive pulmonary disease, unspecified; M13.89 Other specified arthritis, multiple sites; K21.9 Gastro-esophageal reflux disease without esophagitis; J90 Pleural effusion, not elsewhere classified; R30.0 Dysuria; R35.0 Frequency of micturition; R26.89 Other abnormalities of gait and mobility
CPT/HCPCS: 36415; 74176; 80053; 81001; 85025; 87086; 94640; 94760; 96365; 99231; 99284; A4222; J1956; J7506; J7613

== ENCOUNTER → 2017-07-09 | Outpatient (CLI) | payer OTHER, MEDICARE ==
--- NOTE | 2017-07-09 09:29 | MRI ---
MRI lumbar spine without contrast Indication: Crunching the ways in the lower back while lifting heavy object with severe pain Technique: Multiplanar, multi sequence imaging of the lumbar spine without IV contrast administration . Findings: Lumbar spine alignment is maintained. There is mild superior endplate vertebral body height loss at L2 with corresponding mild increased STIR signal within the superior endplate consistent wit h acute/subacute compression deformity/injury.. There is small amount of increased STIR signal within the L1-2 disc space likely representing a nucleus pulposus tear. There is mild disc desiccation and disc space loss at L4-5 and L5-S1. There is a tiny synovial cyst noted on the left arising from the L 4-5 facet joint. No paraspinal fluid collection. There appears to be an extrarenal left-sided renal p nathaniel. At T12-L1 unremarkable At L1-2 broad-based disc bulge with mild facet arthropathy causes mild spinal canal narrowing without bony neural foraminal stenosis. At L2-3 broad-based disc bulge with moderate facet arthropathy causes mild spinal canal stenosis with moderate right and mild left-sided neural foraminal narrowing. There is mild mass effect on the siu siting right L3 nerve root. At L3-4 broad-based disc bulge with moderate facet arthropathy causes mild spinal canal stenosis with severe right and moderate severe left-sided neural foraminal narrowing. At L4-5 broad-based disc bulge with moderate facet arthropathy causes very mild spinal canal stenosis with mild to moderate ight and severe left-sided neural foraminal narrowing. At L5-S1 broad-based disc bulge with mild facet arthropathy causes mild spinal canal stenosis with mo derate right and left-sided neural foraminal stenosis. Impression: 1. Mild depression of the superior plate of L2 with mildly increased STIR signal within the vertebral body superior endplate cortex is suspicious for acute/subacute compression fracture deformity with a ssociated approximate 25%vertebral body height loss.. There is no retropulsion of the posterior to tracie dy wall; however there is increased signal within the L1-2 disc space suggesting an acute nucleus pro pulsus tear. 2.Multilevel discogenic degenerative change and facet arthropathy causing varying degrees of spinal c anal and neural foraminal stenosis as described above. Reported By:
== END ==
LOC: RAD 08:03
PROVIDERS: ATTEND Nurse Practitioner
DX: Z12.31 Encounter for screening mammogram for malignant neoplasm of breast (principal); M54.16 Radiculopathy, lumbar region
CPT/HCPCS: 72148; 77067

== ENCOUNTER → 2017-10-02 | Outpatient (CLI) | payer OTHER, MEDICARE ==
--- NOTE | 2017-10-02 12:14 | MRI ---
MRI OF THE LUMBAR SPINE WITHOUT IV CONTRAST CLINICAL INDICATION: Low back pain with radiculopathy TECHNIQUE: Pre-contrast sagittal T1-, T2-, and T2-w fat-saturated images, and axial T1- and T2-w imag es of the lumbar spine. COMPARISON: 07/09/2017 for the same indication. FINDINGS: For purposes of this dictation, it is assumed that there are 5 [id number], lumbar-type vertebrae , and the most caudal fully segmented lumbar vertebra is labeled L5. The lumbar spine demonstrates normal alignment. L3 through L5 laminectomy is present. There are new c ompression deformities of L3 and L4 with some mildly increased STIR signal. Chronic L2 compression de formity is again seen. There is no evidence of retropulsion of fracture fragments from these new comp ression deformities. Redemonstration of multilevel disc height loss and desiccation worst at L3-L4 an d L4-L5. The conus medullaris terminates at a normal level and the nerve roots of the cauda equina ap pear normal. The included paraspinal soft tissues and retroperitoneal structures are grossly normal. Evaluation of the individual levels demonstrates: L1-2: Circumferential but somewhat eccentric left disc bulge resulting in moderate to severe central stenosis and severe left-sided neural foraminal stenosis. L2-3: Circumferential disc bulge with severe central stenosis as well as ligamentum flavum redundancy and facet arthropathy resulting in severe bilateral foraminal stenosis. L3-4: Circumferential disc bulge as well as facet hypertrophy with mild to moderate central stenosis and critical bilateral neural foraminal stenosis. L4-5: Circumferential disc bulge with mild central stenosis as well as facet hypertrophy resulting in critical left and severe right neural foraminal stenosis. L5-S1: Circumferential disc bulge without central stenosis as well as facet arthropathy resulting in severe bilateral neural foraminal stenosis. IMPRESSION: 1. Acute/subacute compression fracture deformity of left than 25% of L3 and L4. 2. Severe multilevel degenerative disc disease resulting in up to critical neural foraminal stenosis at multiple levels. See above for details. Reported By:
== END | disposition home or self-care (01) | DRG 552 ==
LOC: RAD 08:17
PROVIDERS: ATTEND Internal Medicine
DX: M54.5 Low back pain (principal); M54.16 Radiculopathy, lumbar region
CPT/HCPCS: 72148